=== PATIENT | female | born 1960 | race Caucasian/White ===

== ENCOUNTER 2018-07-20 12:25 | Inpatient (IN) | payer OTHER ==
[~2018-07-20] VITALS: Ht 165.1 cm; Wt 58.5 kg
--- NOTE | ~2018-07-20 | H ---
[facility] [place] [address] [place] [address] HISTORY AND PHYSICAL Name: ROSHNI FAUSTIN Room #: 514-P [facility] IN M.R.#: [id number] Admission: 07/20/18 Attend Phys: Chris Leblanc MD Discharge: 07/28/18 Date of : 56 Report #: [id number] THIS REPORT FOR: //name// CC: Chris GARZA DATE OF SERVICE: 07/20/2018 HISTORY OF PRESENT ILLNESS: This is a 58-year-old female who is admitted to [facility] with dysphagia, aspiration, double vision and generalized weakness. The patient has history of small cell lung carcinoma. She was evaluated by Oncology and Neurology. She was started on Opdivo chemotherapy approximately 3 weeks ago for her small cell lung cancer and concern for possible medication adverse effect versus a perineoplastic process versus other Lambert-Eaton or myasthenia gravis etiology. She underwent a spinal tap, which final result is still pending. Due to her generalized weakness she is now being admitted to acute inpatient rehabilitation unit for physical, occupational and speech therapies. Today, the patient continues to report double vision. She has some nausea. She also reports significant acid reflux since starting on Mestinon today as a trial per Neurology recommendation. She denies dizziness, headache, cough, shortness of air, chest pain, or constipation. She has numbness and tingling neuropathy in bilateral feet status post chemotherapy. She reports significant generalized fatigue. PAST MEDICAL HISTORY: Hyponatremia/SIADH 04/2015, appendectomy 1992, tubal ligation in 1988, 12/2015 diagnosed small cell lung cancer, history of SVC syndrome. HABITS: She is a past cigarette smoker, 35-year pack history, quit over a year ago. History of alcohol use, none recent. No illicit drug use. SOCIAL HISTORY: She is single. She lives alone in an apartment, all living on one level, zero stairs. Prior to onset of these symptoms, she utilized no assistive device. She denied history of falls at home. She was independent for all IADLs and ADLs. She does still drive. CURRENT MEDICATIONS: Lovenox 60 mg subQ twice a day, Pepcid 20 mg daily p.r.n., Tums 500 mg q.8 hours p.r.n., milk of mag 10 mL q.6 hours p.r.n., senna 2 tablets daily, Colace 100 mg twice a day p.r.n., dexamethasone 4 mg q.i.d., Xanax 0.25 mg p.r.n. twice a day, demeclocycline 3 times a day, pyridostigmine 60 mg twice a day x 2 doses. ALLERGIES: PENICILLIN, PROZAC, ASPIRIN, DOXYCYCLINE, COMPAZINE. REVIEW OF SYSTEMS: Remainder of her 12-point review of systems is negative except as listed in HPI. [address] [address] HISTORY AND PHYSICAL Name: ROSHNI FAUSTIN Room #: 514-P [facility] IN M.R.#: [id number] Admission: 07/20/18 Attend Phys: Chris Leblanc MD Discharge: 07/28/18 Date of : 56 Report #: [id number] PHYSICAL EXAMINATION: VITAL SIGNS: 120/82, respirations 18, pulse 91, temperature 97.8, 100% oxygen on room air. GENERAL: She is awake, alert. She is oriented x 4. She is in no acute distress. HEENT: Head is normocephalic. Eyes, nystagmus reproduced. CARDIAC: S1, S2, regular rate and rhythm. CHEST: Lungs are diminished in the bases. ABDOMEN: Bowel sounds positive, soft, nontender, nondistended. GENITOURINARY: No CVA tenderness. PSYCHIATRIC: Anxious and flat affect. EXTREMITIES: Functional range of motion in bilateral upper and lower extremities. No clonus. Good nlngzk-yj-uisn testing. No lower extremity edema. Negative Homans sign. Able to lift lower extremities antigravity, strength grossly 4/5. Min assist to ambulate 125 feet with single point cane, loss of balance several times to the right, mod assist for 2 stairs, sit to stand min assist, min assist for lower extremity dressing, supervision for bed mobility. ASSESSMENT: 1. Paraneoplastic process/Lambert-Eaton presentation. 2. Diplopia. 3. Dysphagia. 4. Gait instability. 5. Small cell lung cancer. 6. History of thrombosis, on anticoagulation. 7. History of syndrome of inappropriate antidiuretic hormone secretion. 8. Hypertension. 9. History of tobacco abuse. PLAN: The patient will be admitted to acute inpatient rehabilitation unit for physical, occupational and speech therapies. Her hospitalist and Neurology and Oncology services will continue to follow her on rehabilitation unit. She has been started by Neurology on trial medication, would expect to see improvement within one day if the medication will work. We will continue to provide emotional support as the patient is very anxious about new symptoms. Social work will assist with discharge planning. We will have team conference next Tuesday. Please see extensive orders. <ELECTRONICALLY SIGNED> By: NANDA De La Cruz 07/31/18 1136 1527 1557 Kelly Parada, NANDA /nt
--- NOTE | ~2018-07-20 | PLAN ---
[facility] [place] [address] REHAB UNIT PLAN OF CARE Name: ROSHNI FAUSTIN Room #: 514-P [facility] IN M.R.#: [id number] Admission: 07/20/18 Attend Phys: Chris Leblanc MD Discharge: 07/28/18 Date of : 56 Report #: [id number] THIS REPORT FOR: //name// CC: Chris GARZA DATE OF SERVICE: 07/22/2018 OVERALL PLAN OF CARE The overall plan of care is based on the preadmission screen, post-admission physician evaluation, and information garnered from therapy assessments. 1. Estimated length of stay is probably 7-10 days, likely longer as warranted. 2. Medical prognosis is reasonably good. 3. Anticipated interventions include the interdisciplinary acute inpatient rehabilitation program with PT and OT, working with the rehab nursing assisting regarding medication management, skin care prophylaxis, bowel and bladder issues, and nursing education. The interdisciplinary acute rehabilitation team is involved as well as the consulting physicians. 4. Anticipated functional outcomes would be for the patient to become modified independent with transfers, mobility, and ADLs, so that she can hopefully return back to her prior living situation. Goal would be for her to become independent at least with a walker level to return back to the home setting. 5. Discharge destination would be back to the home setting where she lives alone in an apartment. 6. Expected therapy by discipline includes PT and OT 1-1/2 hours per day each 5 days a week throughout the duration of the acute inpatient rehabilitation stay. The patient is currently min assist for transfers and has been min assist, ambulating 500 feet with a front-wheeled walker. In occupational therapy, upper body dressing is supervision with lower body dressing min assist. The overall plan of care is based on the preadmission screen, post-admission physician evaluation, and information garnered from therapy assessments. <ELECTRONICALLY SIGNED> By: Chris Leblanc MD 08/01/18 1000 0920 1009 Chris Leblanc MD /nt
--- NOTE | ~2018-07-20 | HC ---
[facility] [place] [address] CONSULTATION Name: ROSHNI FAUSTIN Room #: 514-P ADM IN M.R.#: [id number] Admission: 07/20/18 Attend Phys: Luis Manuel Leblanc MD Discharge: Date of : 56 Report #: [id number] THIS REPORT FOR: //name// CC: LUIS MANUEL Mckinney MD [facility] DUANE Erickson MD REQUESTING PHYSICIAN: Luis Manuel Leblanc M.D. REASON FOR CONSULTATION: History of small cell lung cancer. HISTORY OF PRESENT ILLNESS: The patient is a very pleasant 58-year-old female with a diagnosis of extensive stage small cell lung cancer from 12/2015. Recently, she began having some double vision troubles and also trouble swallowing. So far, the workup has included an MRI of the head with and without contrast, which was not showing any cerebral or cortical lesions nor has it shown any meningeal enhancement or any signs of stroke or infarct. She has also had a spinal tap and if I understand correctly, the cytology is negative for malignant cells. She began on steroids about 3 days ago and is currently on 6 mg q.6h. She also was begun on Mestinon, I believe, 60 mg b.i.d. yesterday by the neurologist. Today, the patient reports her double vision maybe a little bit better; as far as she thinks, it is about the same. She denies any fevers or chills, does not have any new aches or pains. Bowel and bladder function appear to be doing well. PAST MEDICAL HISTORY: Past history is notable for the extensive stage small cell lung cancer, originally diagnosed in 12/2015 in the past with carboplatin and TOWBOAT CAPTAIN-16 for 4 cycles and chest radiation therapy. She also completed prophylactic cranial radiation therapy about 08/2016. Unfortunately, she had progression with hyponatremia and began topotecan on 03/14/2017; last dose of that was 06/2017. She also then had progression and received cisplatin and etoposide; last administered in spring. Recently had progression and began Opdivo about 3-4 weeks ago. She also has a history of hyponatremia, for which she takes demeclocycline, usually 3 times a day as well as sodium pills 4 a day. Also, had pill esophagitis in the past, but none recently. Appendectomy in 1992, tubal ligation in 1988. FAMILY HISTORY: Mother has had cardiac disease and stents. [place] [address] CONSULTATION Name: ROSHNI FAUSTIN Room #: 514-P [facility] IN M.R.#: [id number] Admission: 07/20/18 Attend Phys: Luis Manuel Leblanc MD Discharge: Date of : 56 Report #: [id number] SOCIAL HISTORY: The patient stopped smoking several years ago; prior to that, a half pack a day for 40 years. Alcohol, none recently. Street drugs none. Appendectomy in 1992, tubal ligation in 1988. MEDICATIONS: At this time currently include allopurinol 300 daily, sodium pills 1 gram q.i.d., demeclocycline 300 mg t.i.d., dexamethasone 4 mg t.i.d., pyridostigmine or Mestinon 60 b.i.d., Lovenox 60 subq b.i.d., Tylenol p.r.n., promethazine p.r.n., Xanax p.r.n., Zofran p.r.n., sennosides p.r.n. and docusate p.r.n. PHYSICAL EXAMINATION: GENERAL: The patient appears her stated age. VITAL SIGNS: Height is 5 feet 5 or 165 cm, weight 129 pounds or 58.5 kilograms. Blood pressure is 115/82, O2 sat 98%, respirations 17, pulse 78 and temperature afebrile at 97.7. MOOD: The patient is alert and pleasant. Family members present. NEUROLOGIC: Speech and thought pattern appear to be normal. Moving all extremities well. HEENT: Oropharynx without injection, erythema, leukoplakia or thrush. LYMPHATICS: No enlarged lymph nodes in the supraclavicular, cervical, axillary or inguinal region. ABDOMEN: Soft. No masses. Slightly obese. EXTREMITIES: Without clubbing, cyanosis or edema. LABORATORY DATA: Recent lab tests include sodium of 134, BUN at 27 and creatinine 0.8. Liver functions have been normal. Albumin 2.7. Coags normal. White count 17.3, hemoglobin 11.4 and platelets 253,000. Differential, slightly increased neutrophils of spinal fluid tests are pending. ASSESSMENT AND PLAN: 1. Extensive stage small cell lung cancer, hold Opdivo. We will most likely consider switching to another regimen which might include Cytoxan. We will consider this in a week or two. 2. Double vision and trouble swallowing, unclear etiology; may be immunologic-related Opdivo. On steroids. We will bump the dose of 4 q. 6, also continue Mestinon per others. Continue physical therapy efforts and speech therapy efforts. 3. Thrombosis in the past. Continues Lovenox. 4. Hyponatremia. Continue demeclocycline and sodium tablets. We will follow with you. <ELECTRONICALLY SIGNED> By: Tyrone Garibay MD 07/24/18 0713 0832 1139 Tyrone Garibay MD /nt
--- NOTE | ~2018-07-20 | H ---
[facility] [place] [address] HISTORY AND PHYSICAL Name: ROSHNI FAUSTIN Room #: 514-P [facility] IN M.R.#: [id number] Admission: 07/20/18 Attend Phys: Chris Leblanc MD Discharge: 07/28/18 Date of : 56 Report #: [id number] THIS REPORT FOR: //name// CC: Chris GARZA DATE OF SERVICE: 07/20/2018 POSTADMISSION PHYSICIAN EVALUATION HISTORY OF PRESENT ILLNESS: The patient is a 58-year-old white female with a history of small cell lung CA, had been started on Opdivo chemotherapy approximately 3 weeks ago, was admitted with dysphagia, aspiration, double vision, generalized weakness. Oncology and Neurology have been involved. She was thought to have possible medication adverse effect versus paraneoplastic process/Lambert-Eaton. Neurology has been involved. Spinal tap noted to be negative. She is currently undergoing a trial of Mestinon. She has diplopia with dysphagia and is on nectar-thickened liquids. She has been admitted for acute in-hospital inpatient rehabilitation. She has also had significant functional mobility decline as well and ADLs with her presentation. Please see the full admission history and physical from nurse practitioner, Kelly Parada. As far as past medical history, habits, social history and allergies, see this report. MEDICATIONS: Please see the full medication listing. This includes vitamin, herbals and minerals. REVIEW OF SYSTEMS: No complaints currently of chest pain, shortness of breath, or abdominal discomfort. PHYSICAL EXAMINATION: HEENT: Appeared normocephalic. CHEST: Sounded clear to auscultation. CARDIAC: Regular rate and rhythm. ABDOMEN: Bowel sounds positive, nontender. NEUROLOGIC: She has some nystagmus horizontal bilaterally, slight dysarthric speech, longstanding ptosis right eye. No focal extremity weakness. She has been min-assist with sit to stand, min-assist with short distance ambulation with a cane. ASSESSMENT: 1. Paraneoplastic process/Lambert-Eaton presentation. 2. Diplopia. 3. Dysphagia. 4. Gait instability. 5. Small cell lung carcinoma. [facility] [address] [place] [address] HISTORY AND PHYSICAL Name: ROSHNI FAUSTIN Room #: 514-P [facility] IN M.R.#: [id number] Admission: 07/20/18 Attend Phys: Chris Leblanc MD Discharge: 07/28/18 Date of : 56 Report #: [id number] 6. History of thrombosis, on anticoagulation. 7. History of syndrome of inappropriate antidiuretic hormone secretion. 8. Hypertension. 9. History of tobacco abuse. PLAN: From a post-admission physician evaluation, there are no relevant changes since the preadmission screening. Please see the above review of prior and current medical and functional conditions and comorbidities. Please see the patient's previous and current functional status. As far as risk of complications, the patient has multiple comorbidities as noted above. Initial plan of care involves the interdisciplinary acute inpatient rehabilitation program with goal of maximizing her functional independence, so she can hopefully return back to her prior living situation. Measurable functional goals would be for the patient to become modified independent with transfers, mobility, ADLs as well as swallowing, communication and to decrease the diplopia. Prognosis is reasonably good with estimated length of stay at least 7-10 days pending progress. Potential barriers would include multiple medical comorbidities and decreased functional status. The patient meets diagnostic criteria for an acute in-hospital inpatient rehabilitation stay. She meets the medical necessity criteria and we will have the foreign legal consultant physicians continue to follow. She does have the tolerance for therapies and has appropriate discharge goals back to the home setting. <ELECTRONICALLY SIGNED> By: Chris Leblanc MD 08/01/18 0959 0744 0957 Chris Leblanc MD /nt
--- NOTE | ~2018-07-20 | HC ---
[facility] [place] [address] CONSULTATION Name: ROSHNI FAUSTIN Room #: 514-P [facility] IN M.R.#: [id number] Admission: 07/20/18 Attend Phys: Chris Leblanc MD Discharge: Date of : 56 Report #: [id number] THIS REPORT FOR: //name// CC: Chris GARZA DATE OF SERVICE: 07/23/2018 AGE: 58 ATTENDING PHYSICIAN: Chris Leblanc MD VIRTUAL RECRUITER: Magan Frye, PhD CLINICAL PRESENTATION: The patient is a 58-year-old female admitted to [facility] Rehabilitation Unit for comprehensive inpatient rehabilitation program to improve functional mobility, activities of daily living and self-care and mental status secondary to a change in functional status. She reports having had dysphagia, double vision, generalized weakness and aspiration pneumonia that developed somewhat recently. She was started on an immunotherapy medication Opdivo for treatment of small cell lung cancer. Concern about a paraneoplastic process and possible Lambert-Eaton or myasthenia gravis etiology was also noted. Her diagnoses on admission to rehab include paraneoplastic process/Lambert-Eaton presentation, diplopia, dysphagia, gait instability, small cell lung cancer, history of thrombosis on anticoagulation, history of syndrome of inappropriate antidiuretic hormone secretions, hypertension and a history of tobacco abuse. A complete description of her medical condition and history can be found in her medical record. Neuropsychological consultation was requested to provide assistance in the assessment of cognitive and emotional status and to provide recommendations and services. Prior to this most recent admission, the patient was living independently in her own apartment. She is . She has 3 children and 2 sisters. She is estranged from one child. The patient obtained a GED. 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 TECHNIQUES UTILIZED: Clinical interview, review of medical records, staff consultation and behavioral observation, mini mental status exam 2 standard version, clock drawing and verbal fluency assessment (letter and category). EXAMINATION FINDINGS: The patient was alert and cooperative with the assessment. There is no evidence of aphasia. Her thoughts are logical and goal oriented. There is no evidence of thought disorder. She does not report auditory or visual hallucinations. The patient describes difficulty with sleep [address] [address] CONSULTATION Name: ROSHNI FAUSTIN Room #: 514-P [facility] IN ..#: [id number] Admission: 07/20/18 Attend Phys: Chris Leblanc MD Discharge: Date of : 56 Report #: [id number] and anxiety. She does not report changes in appetite, memory or verbal fluency. The patient also does not report symptoms of depression. She has a p.r.n. order for Xanax and narcotic for pain relief. However, she does not like to use the Xanax or narcotic medication unless it is more severely necessary. Her performance on the MMSE 2 brief version is within normal limits with a raw score of 14/16. She was 3/3 for initial registration, 5/5 for orientation to time, 4/[address] and 2/3 for immediate recall of 3 items after a brief time delay and distraction. Her performance on the MMSE 2 standard version is within normal limits with a raw score of 28/30. The patient's performance in category fluency was in the average range with a raw score of 45, T score of 49. Letter fluency is within normal limits with a raw score of 26 and a T score of 47. Overall, total fluency is in the average range with a raw score of 71 and T score of 50. Cognition is generally within normal limits. There was some evidence of difficulty with hand placement for clock drawing. DIAGNOSTIC IMPRESSION: 1. Unspecified anxiety disorder. 2. Subtle variability in cognition. RECOMMENDATIONS: Continued assistance in the management of anxiety. The use of relaxation techniques and mindfulness meditation may help manage concerns in regard to well being. However, clarification of her diagnosis will also assist in improved awareness and also the management of mood. The uncertainty of her diagnosis creates an apprehension. However, once medical tests are complete and more specific explanation for symptoms will likely improve her overall affect. Thank you very much for allowing me to provide the consultation on this patient. By: 1453 0125 Mgaan Frye, PhD /nt
[~2018-07-20 12:25] MED LIST: ALBUTEROL2.5 MG/0.5; ALLOPURINOL 30300 M2 PO; ALPRAZOLAM 0.0.25 M1 PO; APAP500 PO; DELTASONE20 MG PO; DEMECLOCYCLINE300 MG PO; DEXAMETHASONE 44 M1 PO; ENOXAPARIN60 MG/0.1 SUBQ; LISINOPRIL10 MG PO; LOPRESSOR25 PO; ONDANSETRON HCL4 M2 PO; OXYCONTIN20 M1 PO; PAXIL10 MG; PHENERGAN 25 MG25 M1 PO; PREDNISONE 20 M20 M1 PO; PYRIDOSTIGMINE60 M1 PO; SODIUM CHLORIDE1 G2 PO; TRAMADOL 50 MG50 MG PO; XANAX 0.25 MG0.25 MG PO
[2018-07-20 19:58] VITALS: BP 111/75
[2018-07-21 06:20] LABS: HEMATOCRIT 33.7 % (37.0-47.0); HEMOGLOBIN 11.4 gm/dL (12.0-15.0); MCH 31.2 pg (26.0-34.0); MCHC 33.9 g/dL (28.0-37.0); MCV 92.1 fL (80.0-100.0); RBC 3.66 mil/uL (4.20-5.00); RDW 14.2 % (10.5-14.5); WBC 17.3 thou/uL (4.0-11.0)
[2018-07-21 06:27] LABS: CALCIUM 9.1 mg/dL (8.5-10.1); CREATININE 0.8 mg/dL (0.6-1.0)
[2018-07-21 08:04] VITALS: BP 115/82
[2018-07-21 19:40] VITALS: BP 126/89
[2018-07-22 08:00] VITALS: BP 106/78
[2018-07-22 20:25] VITALS: BP 107/76
[2018-07-23 15:16] VITALS: BP 116/77
[2018-07-23 20:30] VITALS: BP 125/88
[2018-07-24 08:25] VITALS: BP 122/85
[2018-07-24 19:35] VITALS: BP 110/69
[2018-07-25 08:00] VITALS: BP 134/77
[2018-07-25 19:35] VITALS: BP 132/78
[2018-07-26 04:24] LABS: HEMATOCRIT 33.2 % (37.0-47.0); HEMOGLOBIN 11.3 gm/dL (12.0-15.0); MCH 31.4 pg (26.0-34.0); MCHC 33.9 g/dL (28.0-37.0); MCV 92.5 fL (80.0-100.0); RBC 3.59 mil/uL (4.20-5.00); RDW 14.7 % (10.5-14.5)
[2018-07-26 04:25] LABS: CALCIUM 8.8 mg/dL (8.5-10.1); CREATININE 0.9 mg/dL (0.6-1.0); POTASSIUM 4.8 mmol/L (3.5-5.1)
[2018-07-26 08:30] VITALS: BP 131/90
[2018-07-26 19:56] VITALS: BP 143/88
[2018-07-27 07:48] VITALS: BP 120/93
[2018-07-27 20:25] VITALS: BP 125/84
[2018-07-28 08:20] VITALS: BP 144/90
[2018-07-28] MEDS ORDERED: COLACE100 MG PO (08:38)
[2018-07-28] MEDS ORDERED: ENOXAPARIN60 MG/0.1 SUBQ (08:38)
[2018-07-28] MEDS ORDERED: DEXAMETHASONE 44 M1 PO (08:38)
[2018-07-28] MEDS ORDERED: PYRIDOSTIGMINE60 M1 PO (09:03)
[2018-07-28] MEDS ORDERED: XARELTO15 MG PO (09:05)
[2018-07-28 10:13] VITALS: BP 125/84
== END 2018-07-28 16:40 | disposition home health service (06) | DRG 56 ==
LOC: ENTRNSPT 07-28 16:26
PROVIDERS: Internal Medicine Hematology & Oncology; Nurse Practitioner Family
DX: G70.80 Lambert-Eaton syndrome, unspecified (principal); E43 Unspecified severe protein-calorie malnutrition; C34.90 Malignant neoplasm of unspecified part of unspecified bronchus or lung; E87.1 Hypo-osmolality and hyponatremia; R53.1 Weakness; Z60.2 Problems related to living alone; R13.10 Dysphagia, unspecified; H53.2 Diplopia; R26.9 Unspecified abnormalities of gait and mobility; I10 Essential (primary) hypertension; F41.9 Anxiety disorder, unspecified; Z90.49 Acquired absence of other specified parts of digestive tract; Z87.891 Personal history of nicotine dependence; Z79.899 Other long term (current) drug therapy; Z88.0 Allergy status to penicillin; Z88.2 Allergy status to sulfonamides; Z88.1 Allergy status to other antibiotic agents; Z88.6 Allergy status to analgesic agent; Z79.01 Long term (current) use of anticoagulants; Z82.49 Family history of ischemic heart disease and other diseases of the circulatory system; Z68.21 Body mass index [BMI] 21.0-21.9, adult
CPT/HCPCS: 10112

== ENCOUNTER 2020-07-20 10:37 | Inpatient (IN) | payer OTHER ==
[2020-07-20] VITALS (12 sets, daily range): BP systolic 122–187; BP diastolic 78–109
[~2020-07-20] VITALS: Ht 165.1 cm; Wt 41.3 kg
[~2020-07-20 10:37] MED LIST changes: +COLACE100 MG PO; +XARELTO15 MG PO
[2020-07-20 11:29] LABS: HEMATOCRIT 32.3 % (37.0-47.0); HEMOGLOBIN 10.5 gm/dL (12.0-15.0); MCH 32.2 pg (26.0-34.0); MCHC 32.4 g/dL (28.0-37.0); MCV 99.3 fL (80.0-100.0); RBC 3.25 mil/uL (4.20-5.00); RDW 19.1 % (10.5-14.5); WBC 35.4 thou/uL (4.0-11.0)
[2020-07-20 11:33] LABS: ANION GAP 9 mmol/L (7-16); BUN 48 mg/dL (7-18); CALCIUM 8.9 mg/dL (8.5-10.1); CHLORIDE 102 mmol/L (98-107); CO2 26 mmol/L (21-32); GLUCOSE 121 mg/dL (74-106); POTASSIUM 4.3 mmol/L (3.5-5.1); SODIUM 137 mmol/L (136-145)
[2020-07-20 11:41] LABS: TROPONIN-I <0.06 ng/mL (<0.06)
[2020-07-20 12:20] LABS: ALBUMIN 3.8 g/dL (3.4-5.0); DIRECT BILIRUBIN 0.1 mg/dL (<0.1-0.2); TOTAL BILIRUBIN 0.4 mg/dL (0.2-1.0); TOTAL PROTEIN 6.3 g/dL (6.4-8.2)
[2020-07-20 12:55] LABS: URINE BILIRUBIN NEGATIVE (Negative); URINE BLOOD 2+ (Negative); URINE CLARITY CLEAR; URINE COLOR YELLOW; URINE GLUCOSE-RANDOM* NEGATIVE (Negative); URINE KETONES NEGATIVE (Negative); URINE LEUKOCYTES-REFLEX TRACE (Negative); URINE NITRITE-REFLEX NEGATIVE (Negative); URINE PROTEIN (DIPSTICK) TRACE (Negative); URINE SPECIFIC GRAVITY 1.015 (1.005-1.035); URINE UROBILINOGEN 0.2 E.U./dl (0.2-1.0)
[2020-07-20 13:05] LABS: SQUAMOUS 0-3 Few /LPF (0-3)
[2020-07-20 13:06] LABS: BACTERIA-REFLEX 1-9 Few /HPF (None Seen); CASTS None Seen /LPF (None Seen); CRYSTALS None Seen /LPF (None Seen); URINE RBC 3-10 Few /HPF (0-2); URINE WBC-REFLEX 0-5 Rare /HPF (0-5)
--- NOTE | 2020-07-20 15:22 | NUR ---
1518 CALLED ER FOR REPORT, PATIENT NURSE IS BUSY AND WILL CALL BACK
--- NOTE | 2020-07-20 15:30 | NUR ---
PER PT'S REQUEST, SISTER ROXIE LEES UPDATED OF POC AND ADMISSION PLAN.
[2020-07-20 15:54] LABS: BE(vivo) 0.3 mmol/L (-2 to +3); HCO3 24.4 mmol/L (22.0-26.0); PCO2 37.3 mmHg (35.0-45.0); PO2 91.7 mmHg (80.0-100.0); pH 7.433 (7.360-7.450); sO2 97.3 % (92.0-98.0)
[2020-07-20] MEDS ORDERED: XARELTO20 MG PO (18:32)
[2020-07-20] MEDS ORDERED: LEXAPRO20 MG PO (20:21)
[2020-07-20] MEDS ORDERED: PREDNISONE 5 MG5 M1 PO (20:22)
[2020-07-20] MEDS ORDERED: LOPRESSOR50 MG PO (20:23)
[2020-07-20] MEDS ORDERED: MICARDIS 20MG T20 M1 PO (20:24)
[2020-07-20] MEDS ORDERED: TYLENOL EXTRA500 MG PO (20:25)
[2020-07-20] MEDS ORDERED: PERCOCET 5-3251 EACH PO (20:27)
[2020-07-20] MEDS ORDERED: MESTINON60 MG PO (20:33)
[2020-07-21] VITALS (42 sets, daily range): BP systolic 86–126; BP diastolic 45–88
--- NOTE | 2020-07-21 02:19 | NUR ---
0000- PAtient rhythm changed to afib, rvr. This was informed to Dr. Victor, who ordered a cardizem bolus and gtt.
--- NOTE | 2020-07-21 02:21 | NUR ---
0110- Cardizem gtt was initiated. Patient denies chest pain. Heart rate ranges from 90 bpm to 180bpm. She expressed she does not feel her heart going fast. She does get short of air with exertion, however, oxygenation maintains >94% with activity and oxygen. She has been intermittently resting throughout the night.
[2020-07-21 05:11] LABS: HEMATOCRIT 29.8 % (37.0-47.0); HEMOGLOBIN 9.7 gm/dL (12.0-15.0); MCH 32.3 pg (26.0-34.0); MCHC 32.7 g/dL (28.0-37.0); MCV 98.7 fL (80.0-100.0); PLATELET COUNT 176 thou/uL (150-400); RBC 3.02 mil/uL (4.20-5.00); RDW 19.4 % (10.5-14.5)
[2020-07-21 05:27] LABS: ALBUMIN 2.6 g/dL (3.4-5.0); CALCIUM 8.8 mg/dL (8.5-10.1); CREATININE 1.2 mg/dL (0.6-1.0); MAGNESIUM 2.1 mg/dL (1.8-2.4); POTASSIUM 4.6 mmol/L (3.5-5.1); TOTAL BILIRUBIN 0.6 mg/dL (0.2-1.0); TOTAL PROTEIN 5.8 g/dL (6.4-8.2)
--- NOTE | 2020-07-21 06:22 | NUR ---
Patient progressing towards pulmonary plan of care as evidenced by decreased requirement of oxygen. However, patient not progressing towards plan of cardiac plan of as evidenced by change in rhythm last night with afib rvr and need for cardizem gtt. Patient layed on her right side for a time period and she woke up, oxygenation dropped to 87% and she felt like she could not breath. Reassurance was provided, oxygen was titrated to 10L and nurse encouraged purse lip breathing and relaxation. Her oxygenation within 2 minutes increased back up to 96-100%. She expressed she was having anxiety and she thinks laying on her right side did not help. Patient expressed she will lay on her left because he can breathe better.
--- NOTE | 2020-07-21 07:33 | NUR ---
Patient family brought her some belongings. She now has a tablet, android, with a natural resources extension educator. An I-phone with a natural resources extension educator.
--- NOTE | 2020-07-21 08:14 | EKG ---
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
--- NOTE | 2020-07-21 08:14 | EKG ---
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: 0 : 1960 Requested By: Christopher Victor Order Number: [id number] MD: Micheal Bryant Measurements Intervals [place] Rate: 168 P: AK: QRS: 16 QRSD: 76 T: 80 QT: 277 QTc: 464 Interpretive Statements Atrial fibrillation with rapid V-rate Multiple ventricular premature complexes ST depression, probably rate related Compared to ECG 07/20/2020 11:42:38 Ventricular premature complex(es) now present Sinus rhythm no longer present Atrial premature complex(es) no longer present Myocardial infarct finding no longer present ST (T wave) deviation still present Electronically Signed On 07-21-2020 8:14:30 CDT by Micheal Bryant [email or web address] <ELECTRONICALLY SIGNED> By: Micheal Bryant MD, [facility] 07/21/20 0814 0049 Micheal Bryant MD, [facility] /EPI
--- NOTE | 2020-07-21 08:14 | EKG ---
[facility] [place] [address] ELECTROCARDIOGRAM REPORT Name: ROSHNI FAUSTIN Room #: 237-P ADM IN M.R.#: [id number] Admission: 07/20/20 Attend Phys: Kurt Raya MD Discharge: Date of : 56 Report #: [id number] THIS REPORT FOR: cc: DELONTE - No family physician/PCP DELONTE - No family physician/PCP Mirza Mata MD [facility] THIS REPORT FOR: //name// [facility] ED Test Date: 2020-07-20 Test Time: 11:42:38 Pat Name: ROSHNI FAUSTIN Department: Room: [facility] Gender: F Language Interpreter: : 1960 Requested By: Spenser Slaughter Order Number: [id number] MD: Mirza Mata Measurements Intervals [place] Rate: 90 P: 46 SC: 128 QRS: 12 QRSD: 85 T: 75 QT: 327 QTc: 400 Interpretive Statements Sinus rhythm Atrial premature complexes Compared to ECG 07/20/2020 10:55:02 Atrial premature complex(es) now present Electronically Signed On 07-21-2020 8:14:04 CDT by Mirza Mata [email or web address] <ELECTRONICALLY SIGNED> By: Mirza Mata MD, [facility] 07/21/20 0814 1142 1142 Mirza Mata MD, [facility] /EPI
--- NOTE | 2020-07-21 08:15 | EKG ---
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 <ELECTRONICALLY SIGNED> By: Micheal Bryant MD, [facility] 07/21/20813 2 2 Micheal Bryant MD, [facility] /EPI
[2020-07-21 09:37] LABS: ABSOLUTE NEUTROPHILS 35.3 thou/uL (1.4-8.2)
[2020-07-21 09:38] LABS: ANISOCYTOSIS 2+
--- NOTE | 2020-07-21 09:57 | NUR ---
0700 ASSUMMED CARE FROM SUSANA ACEVEDO NIGHT NURSE. PATIENT IS ON CARDIZEM DRIP. EKG DONE AND SHOWED NSR. CARDIZEM TAPPERED. 0945. DR SANCHES IN AND HOME MEDICATIONS ADDRESSED WELL PPI. SPOKE WITH JOSEFIAN SLADE RN OF ID CONCERNING ENHANCED PRECAUTIONS. ENHANCED PRECAUTIONS DC'D.
--- NOTE | 2020-07-21 12:54 | 2DMMODE ---
[facility] [place] [address] 2 D/M-MODE ECHOCARDIOGRAM Name: ROSHNI FAUSTIN Room #: 237-P ADM IN M.R.#: [id number] Admission: 07/20/20 Attend Phys: Kurt Raya MD Discharge: Date of : 56 Report #: [id number] THIS REPORT FOR: cc: DELONTE - No family physician/PCP FAM - No family physician/PCP Mirza Mata MD [facility] ~ APPROVED REPORT Study performed: 07/21/2020 11:31:00 EXAM: Comprehensive 2D, Doppler, and color-flow Echocardiogram Patient Location: ICU Room #: 237 Status: routine BSA: 1.54 HR: 78 bpm BP: 103/61 mmHg Rhythm: NSR Other Information Study Quality: Technically Difficult Indications Pericardial Effusion 2D Dimensions IVSd: 10.40 (7-11mm) LVOT Diam: 19.63 (18-24mm) LVDd: 41.33 mm PWd: 9.39 (7-11mm) Ascending Ao: 35.03 (22-36mm) LVDs: 28.17 (25-40mm) Aortic Root: 32.19 mm IVC: 19.00 mm Aortic Valve AoV Peak Jaison.: 0.94 m/s AO Peak Gr.: 3.52 mmHg LVOT Max P.64 mmHg LVOT Max V: 0.64 m/s MURRAY Vmax: 2.07 cm2 Mitral Valve E/A Ratio: 0.6 MV Decel. Time: 200.32 ms MV E Max Jaison.: 0.54 m/s MV A Jaison.: 0.84 m/s MV PHT: 58.09 ms [facility] [address] [place] [address] 2 D/M-MODE ECHOCARDIOGRAM Name: ROSHNI FAUSTIN Room #: 237-P [facility] IN Apurva.#: [id number] Admission: 07/20/20 Attend Phys: Kurt Raya MD Discharge: Date of : 56 Report #: [id number] IVRT: 129.18 ms Pulmonary Valve PV Peak Jaison.: 0.67 m/s PV Peak Gr.: 1.82 mmHg Pulmonary Vein P Vein S: 1.24 m/s P Vein A: 0.32 m/s P Vein D: 0.79 m/s P Vein A Dur.: 115.3 msec P Vein S/D Ratio: 1.57 Tricuspid Valve TR Peak Jaison.: 2.51 m/s RAP Estimate: 5.00 mmHg TR Peak Gr.: 25.26 mmHg Left Ventricle The left ventricle is normal size. There is normal LV segmental wall motion. There is normal left ventricular wall thickness. Left ventricular systolic function is at the lower limits of normal LVEF 50%. Mild diastolic dysfunction is present (impaired relaxation pattern). Right Ventricle Right ventricle is grossly normal in size. The right ventricular systolic function is normal. Atria The left atrium size is normal. Right atrium size appears grossly normal. Aortic Valve Mild aortic valve sclerosis. No aortic regurgitation is present. There is no aortic valvular stenosis. Mitral Valve The mitral valve is normal in structure. Respiratory variation seen on mitral inflow pattern There is no mitral valve regurgitation noted. No evidence of mitral valve stenosis. Tricuspid Valve The tricuspid valve is normal in structure. Trace tricuspid regurgitation. Pulmonary artery pressure estimated at 30 mmHg. Pulmonic Valve The pulmonary valve is normal in structure. Trace pulmonic regurgitation. [facility] [place] [address] [place] [address] 2 D/M-MODE ECHOCARDIOGRAM Name: ROSHNI FAUSTIN Room #: 237-P [facility] IN M.R.#: [id number] Admission: 07/20/20 Attend Phys: Kurt Raya MD Discharge: Date of : 56 Report #: [id number] Great Vessels The aortic root is normal in size. IVC is normal in size and collapses >50% with inspiration. Pericardium Large circumferential pericardial effusion. Moderate pericardial effusion noted on echo 01/24/2016. <Conclusion> Left ventricular systolic function is at the lower limits of normal There is normal LV segmental wall motion. LVEF 50%. Mild aortic valve sclerosis. No aortic regurgitation or stenosis The mitral valve is normal in structure. Respiratory variation seen on mitral inflow pattern There is no mitral valve regurgitation Trace tricuspid regurgitation. PAP is estimated at 30 mmHg. Large circumferential pericardial effusion; larger than what was seen in 2016. <ELECTRONICALLY SIGNED> By: Mirza Mata MD, [facility] 07/21/20 1254 1254 1254 Mirza Mata MD, [facility]ACC /INF
--- NOTE | 2020-07-21 14:06 | NUR ---
chart review, unable to visit with pt, rt in icu and preserve on ppe. 6L/nc, cardia gtts, and echo. cm spoke with daughter jair via phone call. he no longer has daily assistance or help. now that i had baby i live [place], it is between her sister kevin, neighbor, and daughter takes turns seeing her. loyd lives alone, no steps, on good days she can shower, dress and make basic food. she needs more assistance but she has spend down and don't know how to do that or if she would be agreeable to that. [facility] comes out 1 x month and they just set her up with physical therapy at [place] in [place]. she been to acute rehab at [facility] here in past. she has hh in past vna. has rollator. she needs more assistance even just to prep meals, 1 or maybe 2 times bring her meals. cm called [facility] to see what program loyd is on, they care check to see if she is on palliative program and will call cm back.
--- NOTE | 2020-07-21 16:54 | NUR ---
1510 PATIENT TRANSFERED 237 TO ROOM 242 AFTER COVID NEGATIVE RESULTS. REPORT OBTAINED FROM RN. PATIENT PLACED BACK ON THE MONITOR AND REORIENTED TO HER ROOM. 1630 PATIENT SISTER AT BEDSIDE
[2020-07-22] VITALS (11 sets, daily range): BP systolic 118–149; BP diastolic 71–90
--- NOTE | 2020-07-22 05:24 | NUR ---
Pt awakens to voice, denies pain, assessments completed and documented. VSS, afebrile.HR 60s-80s. Cardizem gtt off since 1000.
--- NOTE | 2020-07-22 07:19 | HC ---
[facility] [place] [address] CONSULTATION Name: ROSHNI FAUSTIN Room #: 242-P ADM IN M.R.#: [id number] Admission: 07/20/20 Attend Phys: Kurt Raya MD Discharge: Date of : 56 Report #: [id number] THIS REPORT FOR: cc: [facility] - No family physician/PCP DELONTE - No family physician/PCP Tyrone Garibay MD ~ CC: Nate Dawson MD [facility] physician/PCP Darvin Garibay REASON FOR CONSULTATION: Hypoxia with history of lung cancer. HISTORY OF PRESENT ILLNESS: The patient is a very pleasant 60-year-old female with a history of small cell lung cancer, originally diagnosed in 12/2015. At that time, she was refractory hyponatremia. She received carboplatin and COUNTY AUDITOR-16, completed her fourth cycle about 04/07/2016. She then completed consolidative radiation therapy on 06/15/2016. She had troubles with etoposide and completed her therapy with Etopophos. Unfortunately, a CAT scan showed recurrent disease in about November or December of 2016 and she began topotecan. Last dose was 06/2017. She had progressive disease and then began cisplatin and Etopophos, last given in the spring. 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 This gradually improved. She also had progressive disease and was on Gemzar beginning in late 08/2019 with only recent progression in 06/2020. She also had brain mets that were progressing. There are plans to take radiation therapy with Dr. Nate Dawson beginning tomorrow. We had offered either palliative care or additional chemotherapy and she strongly wished to pursue additional chemotherapy, which we were considering. The patient now presents with about a 2-3 day history of productive cough that began as clear and then had some yellow-green change. No fevers. She denies any headache, new vision troubles, new swallowing troubles, new nausea or vomiting, new constipation, new diarrhea, new blood in her urine or stool, new ankle or arm swelling, though she does have weakness. Here, she was found to be hypoxic, requiring quite large amounts of oxygen. Last night, she also developed AFib with rapid ventricular response. PAST MEDICAL HISTORY: Notable for the extensive stage small cell lung cancer with recurrence. 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 [facility] [address] [place] [address] CONSULTATION Name: ROSHNI FAUSTIN Room #: 242-P [facility] IN M.R.#: [id number] Admission: 07/20/20 Attend Phys: Kurt Raya MD Discharge: Date of : 56 Report #: [id number] FAMILY HISTORY: Mother had cardiac disease with stents. Two sisters alive and well. SOCIAL HISTORY: The patient stopped smoking several years ago. Prior to that, half a pack for 40 years. Alcohol: None recently. Street drugs none. MEDICATIONS: At this time in the hospital currently include metoprolol 25 daily, rivaroxaban 20 mg daily, allopurinol 300 daily, vancomycin 750 mg every 48 hours, Tylenol, methylprednisolone 80 mg q. 8, diltiazem 100 mg on a drip, albuterol q.i.d., Zofran p.r.n., docusate b.i.d.; Xanax 0.25 b.i.d. p.r.n., aztreonam 1 gram q. 8, levofloxacin 500 mg, I think done 1 time, though maybe q. 48. PHYSICAL EXAMINATION: GENERAL: The patient appears her stated age. VITAL SIGNS: Height is 5 feet 5 165 cm, weight 111 pounds or 50.5 kilograms. Blood pressure 114/65, respirations 19, O2 sat 100, pulse 79. Note that the oxygen requirements at this time are 6 liters. Earlier, she had been on 10 liters and I believe also perhaps a nonrebreather, though I am not clear at this time. NEUROLOGIC: The patient's face is symmetrical. She is alert and oriented, appears to be a reliable historian. Mood is pleasant. LYMPHATICS: No enlarged lymph nodes. LUNGS: Mostly clear anteriorly with some very soft rhonchi that clear with soft cough. HEART: Regular rate, though we realized that she has had some fibrillation, on the monitor. ABDOMEN: Soft, without masses. EXTREMITIES: Without clubbing, cyanosis. There is some trace edema. LABORATORY DATA: Here with sodium of 137, creatinine of 1.2. Liver functions normal to slightly low, albumin 2.6. White count elevated at 36. Hemoglobin 9.7, MCV 98.7, platelets 176. Differential pending. Initial COVID test negative. Influenza A and B negative. Procalcitonin 0.23. UA had both some white cells, some red cells, some bacteria, nitrite negative, blood 2+. IMAGING: Includes an echo that was ordered. A CTA chest showing no evidence of pulmonary embolism, probable radiation fibrosis in medial right lower lobe, large pericardial effusion. ASSESSMENT AND PLAN: 1. Metastatic small cell lung cancer with recent progression on the scan from about 3 weeks ago. Tentative plans for a new systemic therapy once radiation therapy complete. 2. CEMENT PAVER metastasis. On steroids. We will put plans for SBRT/radiation therapy [facility] [address] [place] [address] CONSULTATION Name: ROSHNI FAUSTIN Room #: 242-P ADM IN M.R.#: [id number] Admission: 07/20/20 Attend Phys: Kurt Raya MD Discharge: Date of : 56 Report #: [id number] on hold with Dr. Nate Dawson to outpatient. 3. Respiratory failure with hypoxia, possible pneumonitis and bronchitis. Cultures pending. Agree with multiple anti-infective agents. 4. Underlying lung disease. Continue with high dose methylprednisolone as well as aerosol treatments. 5. Large pericardial effusion. No plans for echocardiogram. We will check with the office to see where the last one was done for comparison. 6. New onset atrial fibrillation with rapid ventricular response. Continue medications per others. 7. History of Eaton-Lambert type syndrome, mostly resolved at this point. 8. History of essential hypertension. Medications per others. 10. History of IVC clot, continue Xarelto. 11. History of hyponatremia. Continue monitoring. 12. History of pill esophagitis. Continue efforts to remind the patient to drink fluids with liquids, so that is cleared from her throat. <ELECTRONICALLY SIGNED> By: Tyrone Garibay MD 07/22/20 0719 0753 2 Tyrone Garibay MD /[facility]
--- NOTE | 2020-07-22 12:00 | NUR ---
PER DR. SANCEHS, PT MAY TRANSFER TO MED/TELE, IF DR. BANEGAS IN AGREEMENT. DR. BANEGAS PRESENT, HE AGREEDED WITH TRANSFER.
--- NOTE | 2020-07-22 15:43 | NUR ---
>>>0700 Bedside report received, care assumed. >>>0800 Assessmemts done as documented. Pt transfered to chair. Tolerated well. oxygen increased to 4L d/t pt dessating on transfer. >>>1500 Report given to CURTIS Juarez at CCU. Pt tansfered to room 218.
--- NOTE | 2020-07-22 18:34 | NUR ---
ARRIVED TO 218 AT 1515 FROM ICU VIA W/C, ORIENTED TO THE ROOM, AND SOB ON TRANSFERING FROM W/C, VSS AND AFEBRILE AND ST ON THE MONITOR. VOICED NO NEEDS OR CONCERNS AT THIS TIME, AND WILL CONTINUE WITH CURRENT POC.
--- NOTE | 2020-07-23 03:48 | NUR ---
ASSESSMENTS CHARTED, MEDS CHARTED GIVEN. PATIENT DROWSY AT START OF SHIFT, BUT HAS A FRIEND SCHEDULED TO CALL HER IN TIME TO WATCH THE PRESIDENTAL DEBATE. DENIED PAIN. WAS UP TO BSC DURING NIGHT, HAD BOWEL MOVEMENT. PATINENT CURRENTLY BEING TREATED FOR SMALL CELL LUNG CANCER AND METS. STILL WANTS AGGRESSIVE THERAPY AND BEING A FULL CODE. PATIENT IN GOOD SPIRITS. FALL PRECAUTIONS IN PLACE DURING SHIFT.
[2020-07-23 05:46] VITALS: BP 148/98
[2020-07-23 06:33] LABS: ABSOLUTE NEUTROPHILS 12.6 thou/uL (1.4-8.2); BASOPHILS 0.3 % (0.0-2.0); HEMATOCRIT 23.6 % (37.0-47.0); LYMPHOCYTES 0.7 % (24.0-44.0); MCH 32.4 pg (26.0-34.0); MCHC 32.4 g/dL (28.0-37.0); MCV 99.9 fL (80.0-100.0); MONOCYTES 2.3 % (1.0-8.0); PLATELET COUNT 125 thou/uL (150-400); POLYS 96.7 % (36.0-66.0); RBC 2.37 mil/uL (4.20-5.00)
[2020-07-23 06:41] LABS: CALCIUM 8.6 mg/dL (8.5-10.1); CREATININE 1.3 mg/dL (0.6-1.0); POTASSIUM 4.5 mmol/L (3.5-5.1)
[2020-07-23 06:54] LABS: HEMOGLOBIN 7.7 gm/dL (12.0-15.0)
[2020-07-23 12:04] VITALS: BP 127/78
--- NOTE | 2020-07-23 14:44 | NUR ---
Patient transferred from ICU. She resides at home alone. Worked with PT today and not recommended returning home alone. Sp with Flavio RN with [facility] patient on pallative care program. Flavio reports patient may go a day or two without eating or drinking. She would have no energy to make meals and no appetite. Flavio coordinated [employer] company to assist with meal prep and cleaning but patient refused services. Patient can cont with Pallative Care and rec care VNA. Discussed post acute care. Patient is concerned she has missed her radiation tx and wants to return home to resume next week. She is agreeable for referral to if candidate. Also referral to [facility] and [facility]. Patient hopeful to return home with care.
[2020-07-23 15:21] VITALS: BP 125/69
--- NOTE | 2020-07-23 18:05 | NUR ---
ASSESSMENT CHARTED. PT ALERT AND ORIENTED. SOB NOTED WITH ACTIVITY. RT TREATMENT GIVEN ORDERED. ST WITH [facility] ON TELE. PRN ANXIETY MED GIVEN WITH PARTIAL RELIEF. PROGRESSING SLOWLY TOWARDS DISCHARGE GOAL.
[2020-07-23 19:21] VITALS: BP 110/76
--- NOTE | 2020-07-24 01:48 | NUR ---
ASSESSMENTS CHARTED, MEDS CHARTED GIVEN. PATIENT RESTING IN BED DURING SHIFT. RESTARTED ON PRIDOSTIGMINE FOR MUSCLE STRENGTH. UP TO BS WITH ASSIST OF 1 WITH GAIT BELT. PATIENT SLEEPS EASILY, WAKES EASILY. PATIENT WANTS TO CONTINUE BEING AGGRESSIVE WITH THERAPY, NEEDS TO GET RADIATION TREATMENTS STARTED. DOES NOT WANT TO DELAY THEM. RECEIVING ABX AND RESPIRATORY SUPPORT NEEDED. FALL PRECAUTIONS IN PLACE DURNG SHIFT, DENIES PAIN. PATIENT WANTS TO GO HOME FROM HERE BUT IS WORRIED ABOUT FALLING AND BEING ALONE.
[2020-07-24 03:39] VITALS: BP 147/90
[2020-07-24 04:55] LABS: ABSOLUTE NEUTROPHILS 10.6 thou/uL (1.4-8.2); ABSOLUTE RETIC COUNT 0.0374 10^6/uL; BASOPHILS 0.2 % (0.0-2.0); HEMATOCRIT 24.3 % (37.0-47.0); HEMOGLOBIN 7.9 gm/dL (12.0-15.0); LYMPHOCYTES 0.7 % (24.0-44.0); MCH 32.4 pg (26.0-34.0); MCHC 32.3 g/dL (28.0-37.0); MCV 100.2 fL (80.0-100.0); MONOCYTES 2.8 % (1.0-8.0); OBSERVED RETIC COUNT 1.54 % (0.6-2.6); PLATELET COUNT 124 thou/uL (150-400); POLYS 96.3 % (36.0-66.0); RBC 2.43 mil/uL (4.20-5.00); RDW 18.9 % (10.5-14.5)
[2020-07-24 04:56] LABS: % SATURATION 39 % (20-39); IRON 59 ug/dL (50-170); TIBC 153 ug/dL (250-450)
[2020-07-24 05:26] LABS: FOLIC ACID 12.9 ng/mL (8.6-58.9)
[2020-07-24 07:28] VITALS: BP 144/92
--- NOTE | 2020-07-24 13:56 | NUR ---
Patient evaled by 5N and accepted to 5[facility]. Patient agreeable to plan for 5[facility]. Tenative plan transfer possibly tomorrow.
[2020-07-24 15:07] VITALS: BP 129/86
--- NOTE | 2020-07-24 18:50 | NUR ---
AAOX4. CALM, PLEASANT. MILD SOA WITH EXERTION. WORKING WITH PT AND OT. SR WITH PAC'S PER TELE. FALL PRECAUTIONS IN PLACE. WILL CONTINUE TO FOLLOW CLOSELY.
[2020-07-24 20:05] VITALS: BP 133/76
[2020-07-25 00:10] VITALS: BP 146/98
--- NOTE | 2020-07-25 00:24 | NUR ---
PT IS SLEEPING BLOOD PRESSURE ELEVATED AND NOTED ARocio KWOK DIGITAL ADVERTISING ANALYST NO NEW ORDERES AT THIS TIME IS AWARE OF BLOOD PRESSURE. NO COMPLAINTS OF PAIN. LUNGS ARE CLEAR ON 2 LITERS NASAL CANULA. ABDOMEN IS SOFT. BOWEL SOUNDS ACITVE. WILL CONTINUE TO MONITOR AND ASESS PER NURSING. CALL LIGHT WITHIN REACH IF NEEDS ASSISTANCE
[2020-07-25 03:31] VITALS: BP 134/75
--- NOTE | 2020-07-25 08:00 | NUR ---
ASSUMED CARE OF PT AT SHIFT CHANGE, LIVES AT HOME ALONE, USES WALKER BUT NOT MUCH HOME, COUGH, REFUSES GUAIFENSEN, BRUISES LILY, A&0X4, IS NOT IMPULSIVE, IV ABX AND STEROIDS, POSSIBLE D/C TO 5N PER NOTES AND PT HERSELF. SEE SEPARATE INTERVENTIONS FOR ASSESSMENTS. ENCOURAGED PT TO USE CALL LIGHT FOR ANY NEEDS
[2020-07-25 08:14] VITALS: BP 130/77
[2020-07-25 10:56] VITALS: BP 116/68
[2020-07-25] MEDS ORDERED: ZYRTEC10 MG PO (12:05)
[2020-07-25] MEDS ORDERED: LEVOFLOXACIN750 MG PO (12:05)
[2020-07-25] MEDS ORDERED: ALLOPURINOL 30300 M1 PO (12:05)
[2020-07-25] MEDS ORDERED: PEPCID20 MG PO (12:05)
[2020-07-25] MEDS ORDERED: METOPROLOL SUCC50 MG PO (12:05)
[2020-07-25] MEDS ORDERED: COLACE 100 MG100 MG PO (12:05)
[2020-07-25] MEDS ORDERED: CARDIZEM CD 18180 M3 PO (12:05)
[2020-07-25 12:15] LABS: HEMATOCRIT 26.7 % (37.0-47.0); HEMOGLOBIN 8.7 gm/dL (12.0-15.0); MCH 32.3 pg (26.0-34.0); MCHC 32.6 g/dL (28.0-37.0); MCV 99.2 fL (80.0-100.0); RBC 2.69 mil/uL (4.20-5.00); RDW 18.4 % (10.5-14.5); WBC 10.7 thou/uL (4.0-11.0)
[2020-07-25 12:23] LABS: CALCIUM 8.6 mg/dL (8.5-10.1); CREATININE 1.2 mg/dL (0.6-1.0); POTASSIUM 4.5 mmol/L (3.5-5.1)
--- NOTE | 2020-07-25 13:15 | NUR ---
cm spk w/Beverly Tan, who confirmed pt will transfer to 5N today. no needs from cm.
--- NOTE | 2020-07-25 15:39 | NUR ---
GAVE REPORT TO SELENA ACEVEDO WHEN PT'S ORDERS ARE ENTERED FOR D/C. SELENA SAID SHE'D RETRIEVE PT WHEN ALLS DONE
== END 2020-07-25 16:35 | DRG 871 ==
LOC: ER 10:37 → ICU 16:08 → 2N 07-22 15:18
PROVIDERS: Emergency Medicine; Internal Medicine Hematology & Oncology; Internal Medicine Pulmonary Disease; Nurse Practitioner Adult Health; ADMIT Internal Medicine; ATTEND Internal Medicine
PROC: 5A09357 Assistance with Respiratory Ventilation, Less than 24 Consecutive Hours, Continuous Positive Airway Pressure (ICD-10-PCS; principal; 2020-07-20)
DX: A41.9 Sepsis, unspecified organism (principal); J18.9 Pneumonia, unspecified organism; J96.21 Acute and chronic respiratory failure with hypoxia; N17.0 Acute kidney failure with tubular necrosis; I31.3 Pericardial effusion (noninflammatory); C34.90 Malignant neoplasm of unspecified part of unspecified bronchus or lung; C79.31 Secondary malignant neoplasm of brain; I48.19 Other persistent atrial fibrillation; J44.1 Chronic obstructive pulmonary disease with (acute) exacerbation; D68.59 Other primary thrombophilia; E22.2 Syndrome of inappropriate secretion of antidiuretic hormone; J44.0 Chronic obstructive pulmonary disease with (acute) lower respiratory infection; D64.9 Anemia, unspecified; F32.9 Major depressive disorder, single episode, unspecified; F41.9 Anxiety disorder, unspecified; K27.9 Peptic ulcer, site unspecified, unspecified as acute or chronic, without hemorrhage or perforation; J45.909 Unspecified asthma, uncomplicated; J84.10 Pulmonary fibrosis, unspecified; J22 Unspecified acute lower respiratory infection; Z20.828 Contact with and (suspected) exposure to other viral communicable diseases; Z90.49 Acquired absence of other specified parts of digestive tract; Z85.118 Personal history of other malignant neoplasm of bronchus and lung; Z92.21 Personal history of antineoplastic chemotherapy; Z88.6 Allergy status to analgesic agent; Z88.0 Allergy status to penicillin; Z88.8 Allergy status to other drugs, medicaments and biological substances; Z87.891 Personal history of nicotine dependence; Z82.49 Family history of ischemic heart disease and other diseases of the circulatory system; Z95.828 Presence of other vascular implants and grafts
CPT/HCPCS: 10078; 10081

== ENCOUNTER 2020-07-25 13:01 | Inpatient (IN) | payer OTHER ==
[~2020-07-25] VITALS: Ht 165.1 cm; Wt 49.9 kg
--- NOTE | ~2020-07-25 | PLAN ---
[facility] [place] [address] REHAB UNIT PLAN OF CARE Name: ROSHNI FAUSTIN Room #: 501-A ADM IN ..#: [id number] Admission: 07/25/20 Attend Phys: Chris Leblanc MD Discharge: Date of : 56 Report #: [id number] THIS REPORT FOR: //name// CC: Chris Leblanc [facility] physician/PCP DATE OF SERVICE: 07/28/2020 PROGRESS NOTE/OVERALL PLAN OF CARE SUBJECTIVE: The patient was seen in the assessment and was in no distress. Last recorded temperature 36.7, pulse 67, respirations 18, blood pressure 140/87. She has been pleasant and participatory in therapies. Please see the history and physical documentation. Appreciate hospitalist assistance as well regarding her multiple medical comorbidities. She is debilitated with recent admission for acute hypoxic respiratory failure. She had recent sepsis. She does have a history of metastatic small cell lung cancer to the brain. She has a history of SIADH. She has functional mobility and ADL deficits. She has been working in therapies with transfers, contact guard assistance and gait 175 feet contact guard with a front-wheeled walker. In occupational therapy, lower body dressing is more of a min assist with upper body being further assessed. ASSESSMENT: 1. History of lung cancer with metastases to the brain. 2. Chemo-induced peripheral neuropathy. 3. History of Eaton-Lambert syndrome with diplopia. 4. Medical complexity with generalized debilitation. 5. Acute hypoxic respiratory failure. 6. Pneumonia. 7. Acute exacerbation of chronic obstructive pulmonary disease. 8. Prior history of asthma. 9. Atrial fibrillation with rapid ventricular rate. 10. Pericardial effusion, which has been noted to be persistent. 11. Hypertension. 12. Anxiety. PLAN: The overall plan of care includes the followin. Estimated length of stay is at least 7-14 days pending progress. 2. Medical prognosis is reasonably good. 3. Anticipated interventions includes the interdisciplinary acute inpatient rehabilitation program. 4. Anticipated functional outcomes would be for the patient to become modified independent with transfers, mobility and ADLs, so she can return back to the home setting. It is to improve her overall endurance and stability. 5. Discharge destination would be back to the home setting. She had been living alone in an apartment. She does [place] [address] REHAB UNIT PLAN OF CARE Name: ROSHNI FAUSTIN Room #: 501-A [facility] IN [facility]#: [id number] Admission: 07/25/20 Attend Phys: Chris Leblanc MD Discharge: Date of : 56 Report #: [id number] a neighbor. 6. Expected therapy by discipline includes PT and OT 1-1/2 hours per day each five days a week throughout the duration of the acute inpatient rehabilitation stay. We will need to further assess if speech therapy is involved with her noted brain metastases. ADDENDUM: The patient's prognosis for significant practical improvement within a reasonable period of time appears good. Given the patient's complex medical condition and risk of further medical complications, rehabilitation services cannot be safely provided at a lower level of care such as fci facility. The patient will have multiple microsoft bi consultant physicians continue to follow while she is on the acute in-hospital inpatient rehabilitation program. By: [id number] Chris Leblanc MD /[facility]
--- NOTE | ~2020-07-25 | HC ---
[facility] [place] [address] CONSULTATION Name: ROSHNI FAUSTIN Room #: 501-A [facility] IN ..#: [id number] Admission: 07/25/20 Attend Phys: Chris Leblanc MD Discharge: Date of : 56 Report #: [id number] THIS REPORT FOR: cc: DELONTE - Tati family physician/PCP DELONTE - No family physician/PCP Magan Frye PhD ~ CC: Chris MARTEL physician/PCP DATE OF SERVICE: 07/26/2020 BEHAVIORAL STATUS EXAM ATTENDING PHYSICIAN: Misti Leblanc MD BOOKKEEPING MACHINE OPERATOR: Magan Frye, PhD CLINICAL PRESENTATION: The patient is a 60-year-old female initially admitted to the hospital on 07/20/2020 with shortness of breath and a cough. She was diagnosed with acute hypoxic respiratory failure, pneumonia, COPD and asthma and pericardial effusion. The patient is on steroids. She carries a diagnosis of small cell lung CA. She was thought to have a possible medication adverse effect versus paraneoplastic process/Lambert Eaton. Neurology was involved and spinal tap was negative. The patient was admitted. Her assessment on admission to the rehab unit is a paraneoplastic process/Lambert Eaton on presentation, diplopia, dysphagia, gait instability, small cell lung carcinoma, history of thrombosis on anticoagulation, history of syndrome of inappropriate antidiuretic hormone secretion, hypertension and history of tobacco abuse. A complete description of her medical condition and history can be found in her medical record. Neuropsychological consultation was requested to provide assistance in the assessment of cognitive and emotional status and provide recommendations and services. The patient reports having been living independently with occasional assistance from her daughter prior to her admission and recent deterioration in her medical condition. The patient has 3 children who live in [facility]. She is . The patient is a high school graduate. 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 The patient described the deterioration in her physical condition that led to her request for immediate hospitalization. She had a negative COVID test and was admitted to the rehab. The patient has brain cancer and was getting ready to go forward with treatment for metastatic to the brain. [address] [address] CONSULTATION Name: ROSHNI FAUSTIN Room #: 501-A [facility] IN [facility].#: [id number] Admission: 07/25/20 Attend Phys: Chris Leblanc MD Discharge: Date of : 56 Report #: [id number] TECHNIQUES UTILIZED: Clinical interview, review of medical records, staff consultation and behavioral observation, mini mental status exam 2 standard version, verbal fluency assessment, clock drawing and family interview -- sister. EXAMINATION FINDINGS: The patient was alert and cooperative with the assessment. She accurately described events surrounding her admission. There is no evidence of aphasia. Her thoughts are logical and goal oriented. There is no evidence of thought disorder. She describes her symptoms to include anxiety and depression. She does not report difficulty with sleep or appetite. Memory, word finding and energy level are described as symptomatic. Prior history of treatment for anxiety is reported. Her performance on the MMSE 2 brief version is within normal limits with a raw score of 14/16. She was 3/3 for initial registration, 5/5 for orientation to time, 4/[address] and 2/3 for immediate recall of 3 items after a brief time delay and distraction. Performance on the MMSE 2 standard version was within normal limits with a raw score of 26 of 30. She was 5/5 for serial sevens, 2/2 for naming, 1/1 for repetition, 3/3 for auditory comprehension. She could read and follow a single command and write a sentence. The patient had subtle difficulty with copying a simple geometric design. Subtle deficits in clock drawing in regard to visual spatial organization are also noted. Letter fluency was in the low average range with a raw score of 18, T score of 41 and percentile rank of 18. Category fluency was average with a raw score of 41 and a T score of 38 percentile. Total fluency was in the low average range with a raw score of 59, T score of 43 and percentile rank of 24. The patient is presenting with subtle deficits in cognition that include visual spatial organization and likely higher level executive functioning. Subtle variability in memory may also be noted. DIAGNOSTIC IMPRESSION: 1. Mild neurocognitive disorder, without behavior disorder. 2. Unspecified anxiety disorder with depression. RECOMMENDATIONS: Continue treatment program for depression utilizing an antidepressant medication. May also benefit with psychological counseling to assist in overall adjustment. The use of compensatory strategies will be helpful as indicated as a result of variability in cognition. The patient may require increased assistance with activities of daily living upon her return home. The patient did discontinue driving last year. Her sister is available to provide support as needed. [facility] [address] [place] [address] CONSULTATION Name: ROSHNI FAUSTIN Room #: 501-A [facility] IN M.R.#: [id number] Admission: 07/25/20 Attend Phys: Chris Leblanc MD Discharge: Date of : 56 Report #: [id number] Thank you very much for allowing me to provide the consultation on this patient. By: [id number] Magan Fyre, PhD /nt
[~2020-07-25 13:01] MED LIST changes: +ALLOPURINOL 30300 M1 PO; +CARDIZEM CD 18180 M3 PO; +COLACE 100 MG100 MG PO; +LEVOFLOXACIN750 MG PO; +LEXAPRO20 MG PO; +LOPRESSOR50 MG PO; +MESTINON60 MG PO; +METOPROLOL SUCC50 MG PO; +MICARDIS 20MG T20 M1 PO; +PEPCID20 MG PO; +PERCOCET 5-3251 EACH PO; +PREDNISONE 5 MG5 M1 PO; +TYLENOL EXTRA500 MG PO; +XARELTO20 MG PO; +ZYRTEC10 MG PO
--- NOTE | 2020-07-25 16:21 | NUR ---
chart review. cm had visit with pt daughter jair via phone call will she was in icu then transferred to ccu. pt resting before going to acute rehab today. pt lives alone, independent when feeling ok. has 4ww, had hh vna in past, [facility] come out 1 x per month. been to 5n in past. daughter jair lives about 25 miles age since had a baby, try take her some food. private duty was already discussed for clean and meals prep. will cont following as needed for dc needs.
[2020-07-25 17:00] VITALS: BP 127/72
[2020-07-25 19:00] VITALS: BP 123/70
--- NOTE | 2020-07-25 19:12 | NUR ---
ASSUMED CARE OF PT AT 1700 WHEN PT ARRIVED ON UNIT WITH LUCILA THRASHER. RECEIVED REPORT FROM CURTIS VILLAVICENCIO PRIOR TO PT ARRIVING ON UNIT. ADMISSION VITAL SIGNS OBTAINED AND PT DOES NOT APPEAR TO BE IN DISTRESS. CONSULTS CALLED. NIGHT NURSE AWARE OF LATE ADMISSION AND WILL AGREED TO COMPLETE ADMISSION. FALL PRECAUTIONS IN PLACE AND NURSING WILL CONTINUE TO MONITOR.
--- NOTE | 2020-07-25 23:12 | NUR ---
ASSUMED PT CARE AT 1900.PT'S ADMISSION HX,EDUCATION AND ASSESSMENT COMPLETED.PT ON BLOOD THINNER,MULTIPLE BRUISING NOTED TO HER LILY ARMS.PT UP WITH ASSIST X1 /GAIT BELT TO THE TOILET.R CHEST P0RTHA CATH IN PLACE,NOT ACCESSED.PT CONT OF B&B.PT RESTING ON HER BED AT THIS TIME.FALL PRECAUTIONS IN PLACE.CALL LIGHT WITHIN REACH.
[2020-07-26 05:17] LABS: HEMATOCRIT 26.2 % (37.0-47.0); HEMOGLOBIN 8.6 gm/dL (12.0-15.0); MCH 32.7 pg (26.0-34.0); MCHC 32.9 g/dL (28.0-37.0); MCV 99.5 fL (80.0-100.0); RBC 2.64 mil/uL (4.20-5.00); RDW 18.8 % (10.5-14.5); WBC 12.7 thou/uL (4.0-11.0)
[2020-07-26 05:24] LABS: CALCIUM 8.8 mg/dL (8.5-10.1); CREATININE 1.3 mg/dL (0.6-1.0); POTASSIUM 4.6 mmol/L (3.5-5.1)
[2020-07-26 08:00] VITALS: BP 138/94
--- NOTE | 2020-07-26 16:49 | NUR ---
ASSUMED CARE OF PT AT 0700. PT IS A&OX4 AND VITAL SIGNS ARE STABLE. PT DENIES PAIN AND PARTICIPATED IN SCHEDULED THERAPIES. RIGHT CHEST PORT A CATH ACCESSED AND LOCKED. PT REPORTED HAVING COUGHING EPISODE THIS AFTERNOON, RECEIVED ORDER FOR BENZONATE. VISITOR AT THE BEDSIDE. FALL PRECAUTIONS IN PLACE AND NURSING WILL CONTINUE TO MONITOR.
[2020-07-26 19:17] VITALS: BP 123/77
[2020-07-26 20:45] VITALS: BP 137/93
--- NOTE | 2020-07-27 03:19 | NUR ---
ASSESSMENT COMPLETED. PT STABLE ON ROOM AIR. NO COUGH NOTED. SHE CALLS FOR HELP. WALKS WELL TO THE BATHROOM WITH SBA.DENIES PAIN. NO ISSUES TAKING MEDS. AFEBRILE. DENIES ANY GI OR DISCOMFORT. PROGRESSING TOWARDS CARE GOALS.
[2020-07-27 07:00] VITALS: BP 148/90
--- NOTE | 2020-07-27 17:27 | NUR ---
ASSUMED CARE OF PT AT 0700. PT IS A&OX4 AND VITAL SIGNS ARE STABLE. PT DENIES PAIN AND PARTICIPATE IN SCHEDULED THERAPIES. PORT A CATH TO RIGHT CHEST ACCESSED, DRESSING C/D/I. REPORTS OCCASSIONAL COUGHING EPISODES, LUNGS CLEAR BILATERALLY IN ALL LOBES. CALLS APPROPRIATELY FOR ASSISTANCE. FALL PRECAUTIONS IN PLACE AND NURSING WILL CONTINUE TO MONITOR.
[2020-07-27 20:05] VITALS: BP 132/84
--- NOTE | 2020-07-27 21:35 | NUR ---
ASSUMED CARE OF PT AT 1915. PT IS A&OX4. IS ON ROOM AIR. DENIES PAIN. IS STABLE. HAS LEFT CHEST PORT. DRSG INTACT. IS UP WITH SBA, GB, BILL RIVAS. FALL PRECAUTIONS & HOURLY ROUNDING CONTINUED THIS SHIFT. LABS & VITALS REVIEWED. PT IS CURRENTLY SLEEPING. CALL LIGHT WITHIN REACH. WILL CONTINUE TO MONITOR.
[2020-07-28 07:45] VITALS: BP 140/86
--- NOTE | 2020-07-28 14:28 | NUR ---
ASSUMED CARES AT 0700. PT AWAKE, ALERT AND ORIENTED*4. C/O SHARP LEFT CHEST (NON-CARDIAC) PAIN, STATED THAT SHE HAS BEEN EXPERIENCING THIS ON/OFF FOR THE LAST MONTH OR SO. PAIN MEDICATION ADMINISTERED NEEDED. VITALS REMAIN STABLE. PT CONTINUES TO HAVE BRUISING ON ARMS, MILD BLE EDEMA, EXTREMITIES ELEVATED. PT UP WITH 1 SBA, GB AND WALKER AND TOLERATED WELL. Q1H VISUAL CHECKS. CALL LIGHT WITHIN REACH. FALL PRECAUTIONS IN PLACE
[2020-07-28 20:00] VITALS: BP 124/76
--- NOTE | 2020-07-29 01:05 | NUR ---
ASSUMED CARE APPROX 1900 EVENING 07/28. PT ALERT AND ORIENTED X4, PLEASANT AND COOPERATIVE. PT STATED SHE WAS TIRED FROM THERAPY. PT UP TO BATHROOM TO VOID WITH WALKER WITH 1 ASSIST STANDBY TOLERATING WELL. PT APPEARS TO BE SLEEPING SOUNDLY WITH HOURLY ROUNDING CHECKS. BED ALARM ON AND CALL LIGHT IN REACH. WILL CONTINUE TO MONITOR.
[2020-07-29 07:30] VITALS: BP 136/82
--- NOTE | 2020-07-29 13:03 | NUR ---
team meeting, reccommendation: balance and vision problems rt brain mets, on ra now and po abx. outpt radition to start after dc. she will need someone to drive her to appointments. she will need more assist in the home. dc 08/01 pt ot rn, see if family or friends to help with support, cooking, cleaning and laundry.
--- NOTE | 2020-07-29 18:24 | NUR ---
PT A&OX4, VSS, TYLENOL GIVEN FOR GENERAL PAIN AFTER PT. PT HAS RIGHT PORT A CATH. NO COUGH TODAY, ROOM AIR, NO SIGNS OF DISTRESS. WILL CONTINUE TO MONITOR.
[2020-07-29 19:00] VITALS: BP 133/80
--- NOTE | 2020-07-30 03:12 | NUR ---
ASSUMED CARE APPROX 1900 EVENING 07/29. PT ALERT AND ORIENTED X4, PLEASANT AND COOPERATIVE. PT STATED SHE HAD A GOOD DAY WITH THERAPY AND FEELS GOOD ABOUT HER PROGRESS. PT TOOK HS MEDS WITH WATER TOLERATING WELL. PT MODIFIED INDEP TO BSC TOLERATING WELL. PT APPEARS TO BE SLEEPING SOUNDLY WITH HOURLY ROUNDING CHECKS. CALL LIGHT IN REACH. WILL CONTINUE TO MONITOR.
[2020-07-30 06:34] LABS: HEMATOCRIT 24.3 % (37.0-47.0); MCH 32.6 pg (26.0-34.0); MCHC 32.8 g/dL (28.0-37.0); MCV 99.3 fL (80.0-100.0); PLATELET COUNT 149 thou/uL (150-400); RBC 2.44 mil/uL (4.20-5.00); RDW 19.2 % (10.5-14.5); WBC 14.5 thou/uL (4.0-11.0)
[2020-07-30 06:43] LABS: CALCIUM 8.1 mg/dL (8.5-10.1); CREATININE 0.9 mg/dL (0.6-1.0); POTASSIUM 4.6 mmol/L (3.5-5.1)
[2020-07-30 08:00] VITALS: BP 133/90
--- NOTE | 2020-07-30 09:03 | HC ---
[facility] [place] [address] CONSULTATION Name: ROSHNI FAUSTIN Room #: 501-A ADM IN M.R.#: [id number] Admission: 07/25/20 Attend Phys: Chris Leblanc MD Discharge: Date of : 56 Report #: [id number] THIS REPORT FOR: cc: DELONTE - No family physician/PCP FAM - No family physician/PCP Tyrone Garibay MD ~ CC: Chris Leblanc [facility] BRIEF NOTE CONSULT Please see [facility] created progress note the same date. This was a followup, so not technically a consult I wanted to document it here. Please see progress note generated this date. <ELECTRONICALLY SIGNED> By: Tyrone Garibay MD 07/30/20 0903 08 8 Tyrone Garibay MD /nt
--- NOTE | 2020-07-30 10:31 | NUR ---
cm notified that [facility] called they are at capacity so cant take her even since had her before in past. passed on to pt and will look for hh that goes to [facility]
--- NOTE | 2020-07-30 10:52 | NUR ---
FAXED REFERRAL TO [facility] SPOKE WITH MANJINDER IN INTAKE THEY ARE AT CAPACITY AND ARE NOT ABLE TO ACCEPT FOR HH. FAXED REFERRAL TO [facility] SPOKE WITH JENNIFER IN INTAKE THEY SERVICE THE [place] AREA AND WILL REVIEW.
[2020-07-30 11:03] LABS: ABSOLUTE NEUTROPHILS 13.5 thou/uL (1.4-8.2); ANISOCYTOSIS 2+; PLATELET ESTIMATE NORMAL
--- NOTE | 2020-07-30 12:47 | NUR ---
ASSUMED CARES AT 0700. PT AWAKE, ALERT AND ORIENTED*4. VITALS REMAIN STABLE. PT C/O LEFT CHEST (NON-CARDIAC) PAIN, PAIN MEDICATION ADMINISTERED NEEDED. PORTAL CATH REMAINS INTACT AND PATENT. PT CONTINUES TO HAVE BRUISING IN ARMS. UP WITH 1 SBA, GB AND WALKER AND TOLERATED WELL. PARTICIPATED WELL IN ALL THERAPIES AND CONTINUES TO PROGRESS TOWARDS DC GOALS. Q1H VISUAL CHECKS. CALL LIGHT WITHIN REACH. FALL PRECAUTIONS IN PLACE
--- NOTE | 2020-07-30 16:40 | NUR ---
FAXED REFERRAL TO [facility] THEY SERVICE THE [place] AREA SPOKE WITH JENNIFER IN INTAKE THEY CAN ACCEPT AT [place] 08/01.
[2020-07-30 16:41] VITALS: BP 133/90
[2020-07-30 19:06] VITALS: BP 124/85
--- NOTE | 2020-07-31 02:10 | NUR ---
07-30-20 CARE TRANSFERRED 0 OBSERVED PT SUPINE IN BED WITH EYES OPEN WATCHING TV. PT AAOX4, VSS, RR EVEN AND NONLABORED ON RA. PT C/O L. CHEST (NON-CARDIAC) PAIN; PAIN REGIONAL CRA NEEDED. PORTAL CATH CLEAN, INTACT AND PATENT. PT HAS OLD CONTUSIONS BI-LAT UE. PT CALL LIGHT WITHIN REACH, BED LOCKED AND ALARM ON. FALL PRECAUTIONS IN PLACE. ZERO S/S OF ACUTE DISTRESS NOTED, PT WILL CONTINUE TO BE MONITOR PER 5NR PROTOCOL.
[2020-07-31 08:16] VITALS: BP 147/103
[2020-07-31 10:00] VITALS: BP 146/93
--- NOTE | 2020-07-31 12:25 | NUR ---
ASSUMED CARES AT 0700. PT AWAKE, ALERT AND ORIENTED*4. DENIES PAIN AT THIS TIME. BP ELEVATED THIS AM (dbp) BP LOWERING MEDS ADMINISTERED ORDERED. ALL OTHER VITALS REMAIN STABLE. PT REPORTED A WOUND ON HER LEFT BUTTOCKS, BLEEDING THIS AM, PICTURE TAKEN AND WOUNDCARE CONSULTED, WILL CONTINUE TO MONITOR. PT CONTINUES TO HAVE BRUISING IN BUE. UP WITH SBA, GB AND WALKER AND TOLERATED WELL. Q1H VISUAL CHECKS. CALL LIGHT WITHIN REACH. FALL PRECAUTIONS IN PLACE
[2020-07-31 19:29] VITALS: BP 122/79
--- NOTE | 2020-08-01 01:27 | NUR ---
PT ALERT AND ORIENTED X 4. AMB TO BR WITH WALKER. LEFT BUTTOCKS WITH RED AREA APPEARS TO BE BLISTERS THAT HAVE DRAINED. PT DENIES PAIN OR DISCOMFORT. PT APPEARS TO BE SLEEPING ON HOURLY ROUNDS.
[2020-08-01] MEDS ORDERED: VITAMIN D325 MC1 PO (07:58)
[2020-08-01] MEDS ORDERED: CARDIZEM CD 18180 M3 PO (07:58)
[2020-08-01] MEDS ORDERED: METOPROLOL SUCC50 MG PO (07:58)
[2020-08-01] MEDS ORDERED: LEVOFLOXACIN750 MG PO (08:02)
--- NOTE | 2020-08-01 08:41 | NUR ---
Assumed care 0700. Upon initial meeting denied pain. Lungs clear, heart regular rhythm, hypoactive bowel sounds, reports BM today. Rita- Wound care was asked in person to evaluate rash on buttock. No ankle edema. Up in chair watching TV.
[2020-08-01] MEDS ORDERED: DEMECLOCYCLINE300 MG PO (09:53)
--- NOTE | 2020-08-01 10:21 | NUR ---
WOUND CARE CONSULT; ASSESS WOUND L BUTTOCK AREA W/ JONNIE TALENT COORDINATOR, 3 SMALL AREAS <.4 CM PRESENT, 2 AREAS OPEN, OTHER SCABBED OVER, SCANT DRAINAGE, NO S/S INFECTION, NO OTHER BLISTERS NOTED, CLEANSED W/ NS AND BORDER DRSG APPLIED, EXTRA DRSG LEFT AT BS FOR PT TO TAKE HOME, PT COOPERATIVE AND GOOD UNDERSTANDING OF CARE AND FOR HOME HEALTH TO MONITOR WOUND. RECOMMENDATIONS; BORDER FOAM DRSG TO L BUTTOCK, CHANGE DAILY AND PRN HEALTH PHYSICS TECHNICIAN AWARE
[2020-08-01 12:11] VITALS: BP 133/90
--- NOTE | 2020-08-01 12:18 | NUR ---
PT DISCHARGING TODAY TO HOME WITH [facility] FAXED DC ORDERS/SUMMARY RECEIVED CONFIRMATION THEY WILL CALL PT TO ARRANGE VISITS.
[2020-08-01 12:22] VITALS: BP 115/77
--- NOTE | 2020-08-01 12:53 | NUR ---
Belongings packed, given RX for pain med, signed Medicare appeal information sheet. Is taking her personal walker, purse, papers, cell phone, glasses. Says her ride will be a little late from 1330. Pt. is resting in bed, w/c is available in room ready for transport to car. No complaints. Needle removed and heparin injected on right upper chest port. Looking forward to going home.
--- NOTE | 2020-08-01 14:30 | NUR ---
Patient was given discharge instructions re: her meds, appointment, lab needed, signed appropriate papers. Jennifer RN, Nurse Financial Services Auditor accompanied patient to her ride with her belongings and walker. Patient stated she understood the instructions--important areas highlighted. Pt. left unit at 1420.
--- NOTE | 2020-08-01 14:31 | NUR ---
8749 PT ASSISTED TO CAR WITH CGA. FRIEND PRESENT AT CAR. PT VERABLIZED UNDERSTANDING OF DC INSTRUCTIONS THAT WERE GIVEN BY HER RN EARLIER.
== END 2020-08-01 14:20 | disposition home health service (06) | DRG 947 ==
PROVIDERS: Nurse Practitioner; Nurse Practitioner Family; ADMIT Physical Medicine & Rehabilitation; ATTEND Physical Medicine & Rehabilitation
DX: R53.81 Other malaise (principal); J96.01 Acute respiratory failure with hypoxia; J18.9 Pneumonia, unspecified organism; J44.1 Chronic obstructive pulmonary disease with (acute) exacerbation; C79.31 Secondary malignant neoplasm of brain; I31.3 Pericardial effusion (noninflammatory); I48.20 Chronic atrial fibrillation, unspecified; I10 Essential (primary) hypertension; F41.9 Anxiety disorder, unspecified; G62.0 Drug-induced polyneuropathy
CPT/HCPCS: 10112

== ENCOUNTER 2020-08-24 11:50 | Inpatient (IN) | payer OTHER ==
[~2020-08-24] VITALS: Ht 165.1 cm; Wt 57.4 kg
[~2020-08-24 11:50] MED LIST changes: +VITAMIN D325 MC1 PO
[2020-08-24 12:46] VITALS: BP 159/97
[2020-08-24] MEDS ORDERED: ELIQUIS2.5 MG PO (13:11)
[2020-08-24 16:06] VITALS: BP 128/82
--- NOTE | 2020-08-24 16:10 | NUR ---
NEW ADMIT TRANSFER FROM [facility] FOR PERICARDIAL EFFUSION. AX4, LIVES IN APARTMENT ALONE. REPORTED FALL 3 WEEKS AGO SCATTERED BRUISING THROUGH OUT BODY.BILATERAL EDEMA TO ANKLES +2. LEFT LOWER LEG EDEMA +2, SCAB TO COCCYX OPEN TO AIR HEALING. ON RA WITH WHEEZES IN ALL LOBES.NON PRODUCTIVE COUGH. TREATED ANXIETY PER PT'S REQUEST WITH PRN MEDS. SCHEDULED BREATHTING TREATMENTS ORDERED/ADMINISTERED. CONTINENT OF BLADDER/STOOL TO BEDSIDE COMMODE TRANSFERED WITH GATE BELT AND WALKER. ADMISSION EDUCATED, HISTORY, ASSESEMENT COMLETED. CONSENTS IN ROOM TO BE SIGNED. PT'S SISTER NABEEL SUN IS THE DESIGNATED VISITOR. FALL PRECAUTIONS IN PLACE. CALL LLIGHT AND PERSONAL ITEMS IN REACH.
[2020-08-24 19:47] VITALS: BP 142/83
[2020-08-24 23:19] LABS: BE(vivo) -1.6 mmol/L (-2 to +3); PCO2 50.4 mmHg (35.0-45.0); PO2 77.2 mmHg (80.0-100.0); sO2 94.2 % (92.0-98.0)
[2020-08-24 23:20] LABS: pH 7.313 (7.360-7.450)
[2020-08-25] VITALS (35 sets, daily range): BP systolic 103–176; BP diastolic 61–111
[2020-08-25 02:29] LABS: HEMATOCRIT 26.2 % (37.0-47.0); HEMOGLOBIN 8.5 gm/dL (12.0-15.0); MCH 33.6 pg (26.0-34.0); MCHC 32.4 g/dL (28.0-37.0); MCV 103.5 fL (80.0-100.0); RBC 2.53 mil/uL (4.20-5.00); RDW 18.5 % (10.5-14.5); WBC 10.9 thou/uL (4.0-11.0)
[2020-08-25 02:55] LABS: ALBUMIN 2.6 g/dL (3.4-5.0); CALCIUM 8.2 mg/dL (8.5-10.1); CREATININE 1.3 mg/dL (0.6-1.0); POTASSIUM 4.8 mmol/L (3.5-5.1); TOTAL BILIRUBIN 0.3 mg/dL (0.2-1.0); TOTAL PROTEIN 5.5 g/dL (6.4-8.2)
--- NOTE | 2020-08-25 08:11 | NUR ---
see [facility] for assessment. pt recieved to icu 250. pt awake on bipap at .60, lung sounds diminished, 02sat 100. non productive cough. afebrile. shortly after transfer, while pt sleeping, monitor shows SR 70's-80. cardizem off. Remains off, as rate controlled at this time. Monitor shows rhythem change from sr-aflutter, to afib, and back to sr. denies pain except sorenes in Left foot-?injury with toes all bruised. Update given to gail this am
--- NOTE | 2020-08-25 08:56 | NUR ---
ASSUME CARE 1900. PT EXTREMELY SOB/COARSE. FLUIDS AT 75ML/HR. HR IN 170s-180s, PT IN AFIB RVR. ACUTE DISTRESS NOTED. DR RENEE ON UNIT AND CHECKED ON PT. ORDER FOR CARDIZEM 10MG BOLUS AND IV TO TITRATE PER CARDIOLOGY PROTOCOL ACTIVATED. COLD TYPE ARTIST CONSULTED FOR CRACKLES AND INCREASING SOB. ORDERS FOR CXY AND ABGs STAT. BIPAP PLACED AT FIO2 60, PEEP OF 6, RESP 14. ABGS GOT AFTER PT ON BIP[AP FOR ABOUT AN HOUR. DR BANEGAS UPDATED WITH CRITICAL pH AND OVERALL RESP FINCTION. ORDERS FOR ICU GOT. PT TRANSFERRED TO ICU.
--- NOTE | 2020-08-25 14:35 | NUR ---
chart review. unable to visit with loyd rt her sister kevin is here visiting with here. she requiring use of bipap. noted loyd dc last month home from acute rehab with darryn pollock. she was going to cont tx for ca. loyd lives alone, sister, daughter and friend where going to take turns for meal prep and her next door friend vy takes her to her appointments. she also had [facility] in the past. 2 steps to enter home. has walker and 4ww, grab bar. pcp out of [facility]. will cont following as needed for dc needs.
--- NOTE | 2020-08-25 18:18 | NUR ---
took over care at 0645. Patient was very sleepy all day and did not have much of an appetite. Patient went for CT of the chest at 1030 and also had a swallow study at the same time. Patient did pass the swallow study. Patients sister at bedside from 1300 until transfer to ccu at 1800. report given to damon cruz.
--- NOTE | 2020-08-25 18:22 | NUR ---
TO UNIT BY BED FROM ICU, REPORT FROM CURTIS HANNA. ORIENTED TO UNIT. ST PER TELE. DENIES CP, SOA. FALL PRECAUTIONS IN PLACE.
[2020-08-26] VITALS (17 sets, daily range): BP systolic 114–158; BP diastolic 75–97
[2020-08-26 03:37] LABS: HEMATOCRIT 24.1 % (37.0-47.0); HEMOGLOBIN 7.9 gm/dL (12.0-15.0); MCH 33.4 pg (26.0-34.0); MCHC 32.7 g/dL (28.0-37.0); RBC 2.36 mil/uL (4.20-5.00); RDW 18.4 % (10.5-14.5); WBC 10.9 thou/uL (4.0-11.0)
[2020-08-26 03:46] LABS: CALCIUM 7.7 mg/dL (8.5-10.1); CREATININE 1.1 mg/dL (0.6-1.0)
[2020-08-26 07:10] LABS: BE(vivo) 0.5 mmol/L (-2 to +3); HCO3 23.2 mmol/L (22.0-26.0); PO2 74.2 mmHg (80.0-100.0); pH 7.507 (7.360-7.450); sO2 96.2 % (92.0-98.0)
--- NOTE | 2020-08-26 07:24 | NUR ---
ASSUMED CARE OF PATIENT AT 1900; AOX4/DROWSY; AFIB W/RVR ON THE MONITOR/CARDIZEM TITRATED TO GOOD EFFECT; WHEEZING AND COARSE LUNG SOUNDS; RESTED QUIETLY THROUGHOUT MOST OF THE NOC; WILL CONTINUE TO MONITOR;
--- NOTE | 2020-08-26 07:42 | HC ---
[facility] [address] [place] [address] CONSULTATION Name: ROSHNI FAUSTIN Room #: 204-P ADM IN M.R.#: [id number] Admission: 08/24/20 Attend Phys: Rachel Medina MD Discharge: Date of : 56 Report #: [id number] THIS REPORT FOR: cc: FAM - No family physician/PCP FAM - No family physician/PCP Tyrone Garibay MD ~ REASON FOR CONSULTATION: History of small cell lung cancer. HISTORY OF PRESENT ILLNESS: The patient is a 60-year-old female, very well known to me with a history of small cell lung cancer. She recently/last week completed radiation therapy for brain mets. Unfortunately, in the past week, she has had progressive cough with change in phlegm from white to yellow, progressive shortness of air. She was originally admitted at [facility] and transferred to [facility] yesterday. Today, she is in the ICU. She denies fevers or chills. She denies exposure to people with fevers or chills or infectious symptoms. She does note that when she eats a candy, she does cough a bit more. She has had some trouble with aspiration in the past. She has not had any new diarrhea, new constipation, though her bowels maybe a little bit looser. It sounds like. No new skin rash. No abdominal pain. No chest pain to suggest cardiac etiology. Does have some slight leg swelling per her report. PAST MEDICAL HISTORY: Notable for the extensive stage small cell lung cancer, diagnosed in 12/2015. At that time, she was treated with carboplatin, [employer]ERK-16, completed her fourth cycle on 04/07/2016. Completed radiation therapy on 06/15/2016. Unfortunately, CAT scan showed recurrent disease about 12/2016 and she began topotecan. That was last given 06/2017. She had progressive disease and was treated with cisplatin and Etopophos, last in the spring. Unfortunately, she had progression in 05/2018 and received 1 dose of nivolumab and had 9 months stable disease, but unfortunately development Eaton-Lambert type weakness and also cranial nerve palsy with trouble swallowing/aspiration and double vision. Creatinine improved. Unfortunately, she had progressive disease and Gemzar began in 08/2019 until progression 06/2020. She also was found to have brain mets and completed radiation therapy the last week of 07/2020. She also has a history of pill esophagitis. IVC clot. Hypertension, appendectomy, tubal ligation. FAMILY HISTORY: Mother had cardiac disease with stents. Two sisters alive and well. SOCIAL HISTORY: The patient stopped smoking several years ago. Prior to that, half pack for 40 years. Alcohol: None recently. Street drugs: None. MEDICATIONS: At this time in the hospital currently include Flu vaccine, Lovenox 60 mg b.i.d., metoprolol 100 daily, methylprednisolone 80 q. 6 mg IV, [address] [address] CONSULTATION Name: ROSHNI FAUSTIN Room #: 204-P [facility] IN M.R.#: [id number] Admission: 08/24/20 Attend Phys: Rachel Medina MD Discharge: Date of : 56 Report #: [id number] vancomycin 500 g IV q. 12, ipratropium and albuterol respiratory therapy as needed, diltiazem drip, cefepime 1 gram q. 8, ipratropium and albuterol q. 4 hours inhalation therapy, Xanax 0.25 b.i.d. as needed, Tylenol p.r.n. and Zofran p.r.n. PHYSICAL EXAMINATION: GENERAL: The patient appears her stated age. She is in an ICU bed with a BiPAP-type mask on. VITAL SIGNS: Current height is 5 feet 5 inches, which is 165 cm. Weight is 111 pounds or 50.5 kilograms. Blood pressure is recently 147/85, respirations 14, O2 sat 100%, pulse 110, afebrile at 98.1. ___ oxygen supplementation is 50% BiPAP. MOOD: The patient is alert and conversant and pleasant. He is slightly short of air with much talking. LUNGS: Have some slight coarseness centrally and slightly decreased in the bases. LYMPHATICS: No enlarged lymph nodes in the supraclavicular, cervical, axillary or inguinal region. ABDOMEN: Slightly obese. No organomegaly. SKIN: Has a few ecchymoses consistent with hospitalization and steroids. LABORATORY DATA: Notable for recent BUN of 32, creatinine 1.3, sodium had been 136, which is good for this patient. Liver functions normal. Alkaline phosphatase 97. Iron checked in July had been unremarkable. White count 10.9, hemoglobin 8.5. Note that this is consistent with past admission, platelet count 169. Differential nonacute without acute forms. IMAGING: So far have included this admit a chest x-ray outside that reported no acute process with some radiation fibrosis-type changes. ASSESSMENT AND PLAN: 1. Metastatic small cell lung cancer, may consider therapy if the patient gets over current infectious process, though there are limited agents available for this unfortunate patient. 2. History of brain mets, recently completed radiation therapy, appears to be doing well. 3. Pneumonitis with respiratory failure. Cultures pending. Continue multiple anti-infectives and respiratory support. 4. Large pericardial effusion. Cardiology did not think the patient was symptomatic from this. 5. History of Eaton-Lambert syndrome and dysphagia. The patient may need to have speech therapy evaluation to make sure she does not have an aspiration. 6. History of atrial fibrillation with rapid ventricular response. Defer to Cardiology. Currently on a Cardizem drip. [facility] [address] [place] [address] CONSULTATION Name: ROXIEROSHNI K Room #: 204-P [facility] IN .#: [id number] Admission: 08/24/20 Attend Phys: Rachel Medina MD Discharge: Date of : 56 Report #: [id number] 7. History of IVC clot. Currently on Lovenox. 8. History of hyponatremia. Continue monitoring. 9. History of pill esophagitis. Continue monitoring. 10. History of anxiety and mood disorder. Anxiolytics sparingly. We will follow with you. <ELECTRONICALLY SIGNED> By: Tyrone Garibay MD 08/26/20 0742 [id number] Tyrone Garibay MD /nt
--- NOTE | 2020-08-26 11:16 | NUR ---
ATTEMPTING TO WEAN OFF CARDIZEM DRIP. RATE IS IMPROVING AND SOME P-WAVES BEGINNING TO APPEAR. COVID-19 SWAB LEFT NARE TAKEN. FALL PRECAUTIONS REMAIN IN EFFECT.
--- NOTE | 2020-08-26 16:22 | NUR ---
SW reviewed chart and spoke with nursing and attending physician. Pt was transferred to CCU from ICU. Therapy has been ordered to evaluate pt for discharge needs. SW is following to assist as needed with discharge planning.
--- NOTE | 2020-08-26 17:03 | NUR ---
IN AND OUT OF AFIB, BUT RATE CONTROLLED. CARDIZEM DRIP STOPPED. WILL REASSESS.
--- NOTE | 2020-08-27 04:12 | NUR ---
Assumed pt care at 1900. Pt is alert and oriented, no sign of distress noted in pt. Pt has a non-productive cough. Denies any pain. Fall precaution in place. Assessment completed and documented. Scheduled meds administered to pt. Pt is NPO after midnight for a scheduled EGD. No acute events overnight. Continue to monitor. No further needs at this time
[2020-08-27 04:47] VITALS: BP 145/84
[2020-08-27 08:37] VITALS: BP 130/82
[2020-08-27 11:34] VITALS: BP 132/77
[2020-08-27 16:19] VITALS: BP 115/76
--- NOTE | 2020-08-27 16:37 | NUR ---
Met and sp with patient and sister at bedside. 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 Patient hoping to be discharged to home in am. DC digital sales planner to update [facility]. Patient feels comfortable returning home. She reports she is no longer on pallative care with [place]. She has lifeline it is to be installed tuesday. She reports neighbor checks on her throughout the day. Sister and dtr live nearby and can assist. Plan home with HH in am
[2020-08-27 17:15] VITALS: BP 115/76
--- NOTE | 2020-08-27 17:17 | NUR ---
ASSUMED CARE OF PT AT SHIFT CHANGE. ASSESSMENTS CHARTED. MEDS GIVEN PER DEC. PT A&OX4, NO C/O PAIN OR SOA. ON RA. EGD WAS CANCELLED D/T PT NO LONGER WANTING PROCEDURE. WILL CONTINUE TO MONITOR AND FOLLOW POC.
[2020-08-27 20:01] VITALS: BP 141/81
[2020-08-28] VITALS (7 sets, daily range): BP systolic 117–141; BP diastolic 76–92
--- NOTE | 2020-08-28 07:52 | NUR ---
ASSUME CARE 1900. PT/VITALS STABLE. DENIES PAIN. MODERATE TOLERANCE TO ACTIVITY. EXTREME TACHY AND DYSPNEA NOTED WITH ACTIVITY. GREG AIR AT REST WITH NO DISTRESS. MIGHT BENEFIT FROM 2LNC WITH ACTIVITY. PROGRESSING MODERATELY WITH POC. PAROXYSMAL AFIB NOTED WITH HR IN LOW 100s. HR UP TO 160s/170s WHEN PT IS UP TO BATHROOM, BUT DOES NOT SUSTAIN. HR NORMAL WITH REST. PLAN IS POSSIBLE DISCHARGE WITHIN A FEW DAYS. WILL CONTINUE TO MONITOR AND FOLLOW WITH POC
[2020-08-28] MEDS ORDERED: CEFUROXIME250 MG PO (08:46)
[2020-08-28] MEDS ORDERED: PERCOCET 5-3251 EACH PO (08:46)
[2020-08-28] MEDS ORDERED: CARDIZEM CD 30300 M1 PO (08:46)
--- NOTE | 2020-08-28 11:38 | NUR ---
Dcing home today. Dtr to provide ride home this afternonn around 2pm per the unit RN. HH resumed per [facility]. Dc sales planner to fax dc summary/orders and confirm reciept. Pt has a rwalker at home. Weaned off o2. To f/u with her pcp and onc. Case closed.
--- NOTE | 2020-08-28 13:40 | NUR ---
RECEIVED PT'S CARE AROUND 0725; PT. ON BED; RESTINGN WITH EYES CLOSED; EQUAL CHEST RISING; SR ON THE MONITOR; DURING AM ASSESSMENT PT. AOX4; NO C/O PAIN; AM MEDICATIONS GIVEN; REQUESTED FLUE SHOT; FLUE SHOT GIVEN; D/C ORDERS ON PLACED; PT. NOTIFIED; EDUCATED ABOUT D/C PROCESS; ST. UND[facility]STAND[facility]; [facility] ORDER TO D/C [facility]; D/C ACCESS; AFIN ON THE MONITOR; ASSESSMENT CHARGED; FOLLOWING POC; WILL WORK ON D/C;
== END 2020-08-28 14:10 | disposition home health service (06) | DRG 314 ==
LOC: 2N 11:50 → ICU 12:54 → 2N 08-25 17:57
PROVIDERS: Internal Medicine Pulmonary Disease; Nurse Practitioner Family; ADMIT Hospitalist; ATTEND Hospitalist
PROC: 5A09357 Assistance with Respiratory Ventilation, Less than 24 Consecutive Hours, Continuous Positive Airway Pressure (ICD-10-PCS; principal; 2020-08-24)
DX: I31.3 Pericardial effusion (noninflammatory) (principal); J18.9 Pneumonia, unspecified organism; J96.21 Acute and chronic respiratory failure with hypoxia; J96.22 Acute and chronic respiratory failure with hypercapnia; E43 Unspecified severe protein-calorie malnutrition; C34.90 Malignant neoplasm of unspecified part of unspecified bronchus or lung; J44.1 Chronic obstructive pulmonary disease with (acute) exacerbation; N17.9 Acute kidney failure, unspecified; D68.59 Other primary thrombophilia; C79.31 Secondary malignant neoplasm of brain; J44.0 Chronic obstructive pulmonary disease with (acute) lower respiratory infection; Z20.828 Contact with and (suspected) exposure to other viral communicable diseases; I48.0 Paroxysmal atrial fibrillation; F32.9 Major depressive disorder, single episode, unspecified; F41.9 Anxiety disorder, unspecified; K27.9 Peptic ulcer, site unspecified, unspecified as acute or chronic, without hemorrhage or perforation; I10 Essential (primary) hypertension; F39 Unspecified mood [affective] disorder; D53.9 Nutritional anemia, unspecified; R13.10 Dysphagia, unspecified; J84.10 Pulmonary fibrosis, unspecified; Z95.828 Presence of other vascular implants and grafts; Z88.6 Allergy status to analgesic agent; Z88.1 Allergy status to other antibiotic agents; Z88.0 Allergy status to penicillin; Z88.8 Allergy status to other drugs, medicaments and biological substances; Z82.49 Family history of ischemic heart disease and other diseases of the circulatory system; Z95.5 Presence of coronary angioplasty implant and graft; Z86.718 Personal history of other venous thrombosis and embolism; Z86.711 Personal history of pulmonary embolism; Z68.21 Body mass index [BMI] 21.0-21.9, adult; Z87.891 Personal history of nicotine dependence; Z90.49 Acquired absence of other specified parts of digestive tract; Z93.1 Gastrostomy status; Z23 Encounter for immunization
CPT/HCPCS: 10081